=== PATIENT | female | born 1940 | race Caucasian/White ===

== ENCOUNTER 2016-03-15 09:55 | Inpatient (IN) | payer OTHER ==
[2016-03-15] VITALS (13 sets, daily range): BP systolic 94–170; BP diastolic 45–130
[~2016-03-15] VITALS: Ht 147.3 cm; Wt 110.2 kg
[~2016-03-15 09:55] MED LIST: AMLO10TA2 PO; CLIN300C97 PO; FURO-144 PO; METO-302 PO; POTA10CA43 PO; SIMV20TA2 PO
[2016-03-15] MEDS ORDERED: ALBUTEROL FS 2.5 MG/3 ML VIAL.NEB ONE (10:08)
[2016-03-15] MEDS ORDERED: ALBUTEROL FS 2.5 MG/3 ML VIAL.NEB NEB ONE (10:30)
[2016-03-15] MEDS ORDERED: IPRATROPIUM NEB FS 0.5 MG/2.5 ML AMPUL.NEB NEB ONE (10:30)
[2016-03-15] MEDS ORDERED: LOSA1TAB39 PO (10:40)
[2016-03-15 10:49] LABS: BASOPHILS # (AUTO) 0.1 /CMM (0.0-0.2); BASOPHILS % (AUTO) 0.8 % (0.0-2.0); DIFF TOTAL % 100 %; EOSINOPHILS % (AUTO) 0.1 % (0.0-6.0); HEMATOCRIT 37 % (33-45); HEMOGLOBIN 12.3 g/dL (11.5-14.8); LYMPHOCYTES # (AUTO) 0.6 /CMM (0.8-4.8); LYMPHOCYTES % (AUTO) 5.7 % (20.0-44.0); MEAN CORPUSCULAR HEMOGLOBIN 29 PG (26.0-33.0); MEAN CORPUSCULAR HGB CONC 33 g/dl (31.0-36.0); MEAN CORPUSCULAR VOLUME 86 fL (82-100); MONOCYTES # (AUTO) 0.8 /CMM (0.1-1.30); MONOCYTES % (AUTO) 7.3 % (2.0-12.0); NEUTROPHILS # (AUTO) 9.7 /CMM (1.8-8.9); NEUTROPHILS % (AUTO) 86.1 % (43.0-81.0); PLATELET COUNT (AUTO) 305 /CMM (150-450); RED BLOOD CELL COUNT(AUTO) 4.32 MIL/uL (4.0-5.2); WHITE BLOOD COUNT (AUTO) 11.2 K/uL (4.3-11.0)
[2016-03-15 10:51] LABS: ANION GAP 13 (5-14); CALCIUM, SERUM 8.9 mg/dL (8.5-10.1); CARBON DIOXIDE 27 mmol/L (21-32); CHLORIDE 98 mmol/L (98-107); CREATININE 1.2 mg/dL (0.6-1.3); GLUCOSE 142 mg/dL (74-106); POTASSIUM 4.9 mmol/L (3.5-5.1); SODIUM SERUM 133 mmol/L (136-145); UREA NITROGEN, BLOOD 23 mg/dL (7-18)
[2016-03-15 10:58] LABS: TROPONIN I < 0.017 ng/mL (0.00-0.056)
[2016-03-15] MEDS ORDERED: ENALAPRILAT DIHYD. (2.5MG/ML) 1.25 MG/ML VIAL IV ONE ×2 (11:00→11:03)
[2016-03-15] MEDS ORDERED: ASPIRIN 325 MG TABLET PO ONE (11:00)
[2016-03-15] MEDS ORDERED: NITROGLYCERIN PACKET 1 GM PACKET TD ONE (11:00)
[2016-03-15] MEDS ORDERED: FUROSEMIDE 40 MG/4 ML VIAL IV ONE (11:00)
[2016-03-15] MEDS ORDERED: FUROSEMIDE 40 MG/4 ML VIAL ONE (11:03)
[2016-03-15] MEDS ORDERED: NITROGLYCERIN PACKET 1 GM PACKET ONE (11:03)
[2016-03-15] MEDS ORDERED: ASPIRIN 325 MG TABLET ONE (11:03)
[2016-03-15 11:07] LABS: ALANINE AMINOTRANSFERASE 16 U/L (12-78); ALBUMIN 3.5 g/dL (3.4-5.0); ASPARTATE AMINOTRANSFERASE 21 U/L (15-37); BILIRUBIN,DIRECT 0.2 mg/dL (0.0-0.2); BILIRUBIN,TOTAL 0.6 mg/dL (0.2-1.0); INDIRECT BILIRUBIN 0.4 mg/dL (0.0-1.1)
[2016-03-15 11:11] LABS: INR 0.98 (0.87-1.13); PROTHROMBIN TIME 10.3 SECS (9.5-12.7)
[2016-03-15 11:13] LABS: LACTIC ACID 2.2 mmol/L (0.4-2.0)
[2016-03-15 11:33] LABS: *LACTIC ACID REFLEX FLAG YES
[2016-03-15 11:43] LABS: BAND % (MANUAL) 1 % (0.0-5.0); LYMPHOCYTES % (MANUAL) 8 % (16-48)
[2016-03-15 11:44] LABS: PLATELET ESTIMATE ADEQUATE
[2016-03-15] MEDS ORDERED: LEVOFLOXACIN 750 MG /D5W 150ML 750 MG in PREMIX 1 EA IV SCH (13:30)
[2016-03-15] MEDS ORDERED: ACETAMINOPHEN 325 MG TABLET PO PRN (13:30)
[2016-03-15] MEDS ORDERED: ONDANSETRON HCL/PF 4 MG/2 ML VIAL IVP PRN (13:30)
[2016-03-15] MEDS ORDERED: IV SET PRIMARY PUMP SET 1 EA INFUS.SET MC ONE ×2 (13:45→14:53)
[2016-03-15] MEDS: GUAIFENESIN LA 600 MG TABLET.SA PO SCH ×2 (13:50→20:33)
[2016-03-15] MEDS: hydrALAZINE HCL 50 MG TABLET PO SCH ×2 (13:51→16:34)
[2016-03-15] MEDS: ATORVASTATIN 10 MG TABLET PO SCH (13:51)
[2016-03-15] MEDS: IPRATROPIUM NEB FS 0.5 MG/2.5 ML AMPUL.NEB NEB SCH ×2 (14:06→19:31)
[2016-03-15] MEDS: ALBUTEROL FS 2.5 MG/0.5 ML VIAL.NEB NEB SCH ×2 (14:06→19:31)
[2016-03-15 14:25] LABS: PHOSPHORUS 4.5 mg/dL (2.5-4.9)
[2016-03-15 14:27] LABS: ABG BASE EXCESS 0.2 mmol/L; ABG HCO3 24.1 mmol/L; ABG PCO2 36.7 mmHg (35.0-45.0); ABG PH 7.436 (7.350-7.450); ABG PO2 142.8 mmHg (75.0-100.0); ABG TOTAL HEMOGLOBIN 11.6 G/dL (12.0-16.0); ALLEN TEST Pass; AaDO2 100.2 mmHg; O2Hb 97.1 % (94.0-97.0)
[2016-03-15] MEDS: NITROGLYCERIN 30 GM TUBE TP SCH ×2 (14:43→20:38)
[2016-03-15] MEDS: LEVOFLOXACIN 750 MG /D5W 150ML 750 MG in PREMIX 1 EA IV SCH (14:44)
[2016-03-15] MEDS ORDERED: IV NS 0.9% 1,000 ML BAG IV ONE (15:00)
[2016-03-15 15:36] LABS: THYROID STIMULATING HORMONE 2.97 uIU/mL (0.358-3.74)
[2016-03-15 16:20] LABS: ABG HCO3 24.7 mmol/L; ABG PCO2 36.1 mmHg (35.0-45.0); ABG PH 7.453 (7.350-7.450); ABG PO2 74.5 mmHg (75.0-100.0); ABG TOTAL HEMOGLOBIN 11.2 G/dL (12.0-16.0); ALLEN TEST Pass; AaDO2 111.4 mmHg; O2Hb 92.7 % (94.0-97.0)
[2016-03-15] MEDS: RIVAROXABAN 15 MG TABLET PO SCH (16:35)
[2016-03-15] MEDS: methylPREDNISolone SOD SUCC 125 MG/2ML VIAL IV SCH ×2 (17:08→23:30)
[2016-03-16] VITALS (24 sets, daily range): BP systolic 104–144; BP diastolic 42–99
[2016-03-16 01:17] LABS: KETONES,URINE NEGATIVE (NEGATIVE); LEUKOCYTE ESTERASE ,URINE 1+ (NEGATIVE)
[2016-03-16 01:23] LABS: ADD UA MICROSCOPIC YES
[2016-03-16] MEDS: ALBUTEROL FS 2.5 MG/0.5 ML VIAL.NEB NEB SCH ×4 (01:37→19:40)
[2016-03-16] MEDS: IPRATROPIUM NEB FS 0.5 MG/2.5 ML AMPUL.NEB NEB SCH ×4 (01:38→19:40)
[2016-03-16 01:42] LABS: ADD URINE CULTURE YES; RBC,URINE TOO NUMEROUS TO COUN /HPF (0-2)
[2016-03-16] MEDS: methylPREDNISolone SOD SUCC 125 MG/2ML VIAL IV SCH ×4 (05:14→23:41)
[2016-03-16 05:24] LABS: DIFF TOTAL % 100 %; HEMATOCRIT 31 % (33-45); HEMOGLOBIN 10.6 g/dL (11.5-14.8); LYMPHOCYTES # (AUTO) 0.4 /CMM (0.8-4.8); LYMPHOCYTES % (AUTO) 5.7 % (20.0-44.0); MEAN CORPUSCULAR HEMOGLOBIN 29 PG (26.0-33.0); MEAN CORPUSCULAR HGB CONC 34 g/dl (31.0-36.0); MEAN CORPUSCULAR VOLUME 87 fL (82-100); MONOCYTES # (AUTO) 0.1 /CMM (0.1-1.30); MONOCYTES % (AUTO) 0.7 % (2.0-12.0); NEUTROPHILS # (AUTO) 6.8 /CMM (1.8-8.9); NEUTROPHILS % (AUTO) 93.6 % (43.0-81.0); PLATELET COUNT (AUTO) 263 /CMM (150-450); RED BLOOD CELL COUNT(AUTO) 3.63 MIL/uL (4.0-5.2); WHITE BLOOD COUNT (AUTO) 7.3 K/uL (4.3-11.0)
[2016-03-16 06:00] LABS: BILIRUBIN,TOTAL 0.4 mg/dL (0.2-1.0); CALCIUM, SERUM 8.2 mg/dL (8.5-10.1); CREATININE 1.5 mg/dL (0.6-1.3); POTASSIUM 4.7 mmol/L (3.5-5.1); TOTAL PROTEIN, SERUM 7.1 g/dL (6.4-8.2)
[2016-03-16] MEDS ORDERED: BUMETANIDE INJ 8 MG in IV NS 0.9% 48 ML IV ONE (09:00)
[2016-03-16] MEDS: GUAIFENESIN LA 600 MG TABLET.SA PO SCH ×2 (09:10→21:02)
[2016-03-16] MEDS: ATORVASTATIN 10 MG TABLET PO SCH (09:11)
[2016-03-16] MEDS: PANTOPRAZOLE 40 MG VIAL IV SCH (09:11)
[2016-03-16] MEDS: hydrALAZINE HCL 50 MG TABLET PO SCH ×3 (09:11→16:56)
[2016-03-16] MEDS: NITROGLYCERIN 30 GM TUBE TP SCH ×2 (09:15→21:02)
[2016-03-16] MEDS ORDERED: IV NS 0.9% 250 ML IV ONE (16:46)
[2016-03-16] MEDS ORDERED: SECONDARY IV SET 1 EA INFUS.SET MC ONE (16:46)
[2016-03-16] MEDS: SOD FERRIC GLUC 125 MG in IV NS 0.9% 100 ML IV SCH (16:50)
[2016-03-16] MEDS ORDERED: IV SET PRIMARY PUMP SET 1 EA INFUS.SET MC ONE (16:50)
[2016-03-16] MEDS: RIVAROXABAN 15 MG TABLET PO SCH (16:51)
[2016-03-17] VITALS (15 sets, daily range): BP systolic 106–149; BP diastolic 58–96
[2016-03-17] MEDS: ALBUTEROL FS 2.5 MG/0.5 ML VIAL.NEB NEB SCH ×4 (01:35→20:08)
[2016-03-17] MEDS: IPRATROPIUM NEB FS 0.5 MG/2.5 ML AMPUL.NEB NEB SCH ×4 (01:35→20:08)
[2016-03-17 04:46] LABS: BASOPHILS % (AUTO) 0.1 % (0.0-2.0); DIFF TOTAL % 100 %; HEMATOCRIT 32 % (33-45); HEMOGLOBIN 10.8 g/dL (11.5-14.8); LYMPHOCYTES # (AUTO) 0.4 /CMM (0.8-4.8); LYMPHOCYTES % (AUTO) 4.8 % (20.0-44.0); MEAN CORPUSCULAR HEMOGLOBIN 29 PG (26.0-33.0); MEAN CORPUSCULAR HGB CONC 34 g/dl (31.0-36.0); MEAN CORPUSCULAR VOLUME 86 fL (82-100); MONOCYTES # (AUTO) 0.2 /CMM (0.1-1.30); MONOCYTES % (AUTO) 2.1 % (2.0-12.0); NEUTROPHILS # (AUTO) 8.3 /CMM (1.8-8.9); PLATELET COUNT (AUTO) 292 /CMM (150-450); RED BLOOD CELL COUNT(AUTO) 3.68 MIL/uL (4.0-5.2)
[2016-03-17 04:57] LABS: TROPONIN I < 0.017 ng/mL (0.00-0.056)
[2016-03-17 05:02] LABS: ALANINE AMINOTRANSFERASE 19 U/L (12-78); ALBUMIN 3.1 g/dL (3.4-5.0); ANION GAP 16 (5-14); ASPARTATE AMINOTRANSFERASE 14 U/L (15-37); BILIRUBIN,TOTAL 0.3 mg/dL (0.2-1.0); CALCIUM, SERUM 8.2 mg/dL (8.5-10.1); CARBON DIOXIDE 25 mmol/L (21-32); CHLORIDE 102 mmol/L (98-107); CREATININE 1.8 mg/dL (0.6-1.3); GLUCOSE 184 mg/dL (74-106); PHOSPHORUS 5.1 mg/dL (2.5-4.9); POTASSIUM 3.5 mmol/L (3.5-5.1); SODIUM SERUM 139 mmol/L (136-145); TOTAL PROTEIN, SERUM 7.2 g/dL (6.4-8.2); UREA NITROGEN, BLOOD 48 mg/dL (7-18)
[2016-03-17] MEDS: methylPREDNISolone SOD SUCC 125 MG/2ML VIAL IV SCH ×3 (06:21→17:06)
[2016-03-17] MEDS: POTASSIUM CHLORIDE 20 MEQ TAB.PRT.SR PO SCH ×3 (06:25→10:06)
[2016-03-17] MEDS: FUROSEMIDE 100 MG/10 ML VIAL IV SCH ×3 (06:26→14:08)
[2016-03-17] MEDS ORDERED: GUAIFENESIN/CODEINE 10 ML UDC PO PRN (08:30)
[2016-03-17] MEDS ORDERED: Z GUARD REMEDY 2 OZ OINT TP PRN (09:30)
[2016-03-17] MEDS: CHOLECALCIFEROL 1,000 UNIT TABLET (VIT D3) PO SCH (09:53)
[2016-03-17] MEDS: hydrALAZINE HCL 50 MG TABLET PO SCH ×3 (09:54→16:58)
[2016-03-17] MEDS: PANTOPRAZOLE 40 MG VIAL IV SCH (09:55)
[2016-03-17] MEDS: GUAIFENESIN LA 600 MG TABLET.SA PO SCH ×2 (09:55→20:45)
[2016-03-17] MEDS: ATORVASTATIN 10 MG TABLET PO SCH (09:55)
[2016-03-17] MEDS: NITROGLYCERIN 30 GM TUBE TP SCH ×2 (09:55→20:50)
[2016-03-17] MEDS: SOD FERRIC GLUC 125 MG in IV NS 0.9% 100 ML IV SCH (13:40)
[2016-03-17] MEDS: LEVOFLOXACIN 750 MG /D5W 150ML 750 MG in PREMIX 1 EA IV SCH (14:09)
[2016-03-17] MEDS: RIVAROXABAN 15 MG TABLET PO SCH (16:58)
[2016-03-18] VITALS (10 sets, daily range): BP systolic 126–150; BP diastolic 64–96
[2016-03-18] MEDS: methylPREDNISolone SOD SUCC 125 MG/2ML VIAL IV SCH ×2 (00:22→05:31)
[2016-03-18] MEDS: IPRATROPIUM NEB FS 0.5 MG/2.5 ML AMPUL.NEB NEB SCH ×3 (01:03→13:15)
[2016-03-18] MEDS: ALBUTEROL FS 2.5 MG/0.5 ML VIAL.NEB NEB SCH ×3 (01:03→13:15)
[2016-03-18 07:27] LABS: DIFF TOTAL % 100 %; HEMATOCRIT 34 % (33-45); HEMOGLOBIN 11.4 g/dL (11.5-14.8); LYMPHOCYTES # (AUTO) 0.4 /CMM (0.8-4.8); MEAN CORPUSCULAR HEMOGLOBIN 29 PG (26.0-33.0); MEAN CORPUSCULAR HGB CONC 33 g/dl (31.0-36.0); MEAN CORPUSCULAR VOLUME 87 fL (82-100); MONOCYTES # (AUTO) 0.3 /CMM (0.1-1.30); MONOCYTES % (AUTO) 3.5 % (2.0-12.0); NEUTROPHILS # (AUTO) 7.2 /CMM (1.8-8.9); NEUTROPHILS % (AUTO) 91.5 % (43.0-81.0); PLATELET COUNT (AUTO) 334 /CMM (150-450); RED BLOOD CELL COUNT(AUTO) 3.96 MIL/uL (4.0-5.2); WHITE BLOOD COUNT (AUTO) 7.8 K/uL (4.3-11.0)
[2016-03-18 07:46] LABS: ALBUMIN 3.4 g/dL (3.4-5.0); BILIRUBIN,TOTAL 0.4 mg/dL (0.2-1.0); CALCIUM, SERUM 8.1 mg/dL (8.5-10.1); CREATININE 1.9 mg/dL (0.6-1.3); PHOSPHORUS 5.4 mg/dL (2.5-4.9); POTASSIUM 3.5 mmol/L (3.5-5.1); TOTAL PROTEIN, SERUM 7.6 g/dL (6.4-8.2)
[2016-03-18] MEDS: PANTOPRAZOLE 40 MG VIAL IV SCH (08:49)
[2016-03-18] MEDS: hydrALAZINE HCL 50 MG TABLET PO SCH ×3 (08:50→17:00)
[2016-03-18] MEDS: ATORVASTATIN 10 MG TABLET PO SCH (08:50)
[2016-03-18] MEDS: CHOLECALCIFEROL 1,000 UNIT TABLET (VIT D3) PO SCH (08:50)
[2016-03-18] MEDS: GUAIFENESIN LA 600 MG TABLET.SA PO SCH ×2 (08:50→22:00)
[2016-03-18] MEDS: FUROSEMIDE 40 MG TABLET PO SCH (09:35)
[2016-03-18] MEDS: POTASSIUM CHLORIDE 20 MEQ TAB.PRT.SR PO SCH (09:35)
[2016-03-18] MEDS: NITROGLYCERIN 30 GM TUBE TP SCH ×2 (09:36→22:00)
[2016-03-18] MEDS: SOD FERRIC GLUC 125 MG in IV NS 0.9% 100 ML IV SCH (14:00)
[2016-03-18] MEDS: RIVAROXABAN 15 MG TABLET PO SCH (17:00)
[2016-03-19 08:00] VITALS: BP_SYST 124; BP_DIAS 84; BP_DIAS 89
[2016-03-19] MEDS: FUROSEMIDE 40 MG TABLET PO SCH (08:57)
[2016-03-19] MEDS: hydrALAZINE HCL 50 MG TABLET PO SCH (08:57)
[2016-03-19 09:00] VITALS: BP 124/89
[2016-03-19] MEDS: GUAIFENESIN LA 600 MG TABLET.SA PO SCH (09:00)
[2016-03-19] MEDS: NITROGLYCERIN 30 GM TUBE TP SCH (09:00)
[2016-03-19] MEDS ORDERED: methylPREDNISolone SOD SUCC 125 MG/2ML VIAL IV SCH (09:00)
[2016-03-19] MEDS: CHOLECALCIFEROL 1,000 UNIT TABLET (VIT D3) PO SCH (09:00)
[2016-03-19] MEDS: PANTOPRAZOLE 40 MG VIAL IV SCH (09:00)
[2016-03-19] MEDS: POTASSIUM CHLORIDE 20 MEQ TAB.PRT.SR PO SCH (09:00)
[2016-03-19] MEDS: ATORVASTATIN 10 MG TABLET PO SCH (09:00)
== END 2016-03-19 12:40 | disposition home or self-care (01) | DRG 871 ==
LOC: ER 09:56 → ICU 12:16 → TELE 03-17 13:38 → MED 03-19 04:26
PROVIDERS: ADMIT Internal Medicine; ATTEND Internal Medicine
PROC: 5A09357 Assistance with Respiratory Ventilation, Less than 24 Consecutive Hours, Continuous Positive Airway Pressure (ICD-10-PCS; principal; 2016-03-15)
DX: A41.9 Sepsis, unspecified organism (principal); J69.0 Pneumonitis due to inhalation of food and vomit; J96.01 Acute respiratory failure with hypoxia; I50.33 Acute on chronic diastolic (congestive) heart failure; I21.4 Non-ST elevation (NSTEMI) myocardial infarction; N17.0 Acute kidney failure with tubular necrosis; J15.9 Unspecified bacterial pneumonia; J44.1 Chronic obstructive pulmonary disease with (acute) exacerbation; E44.0 Moderate protein-calorie malnutrition; D68.59 Other primary thrombophilia; E87.2 Acidosis; I13.0 Hypertensive heart and chronic kidney disease with heart failure and stage 1 through stage 4 chronic kidney disease, or unspecified chronic kidney disease; Z68.43 Body mass index [BMI] 50.0-59.9, adult; E55.9 Vitamin D deficiency, unspecified; E66.01 Morbid (severe) obesity due to excess calories; E78.5 Hyperlipidemia, unspecified; E88.81 Metabolic syndrome and other insulin resistance; N18.2 Chronic kidney disease, stage 2 (mild); I87.8 Other specified disorders of veins; Z87.891 Personal history of nicotine dependence; I27.2 Other secondary pulmonary hypertension; I48.91 Unspecified atrial fibrillation; E86.9 Volume depletion, unspecified; G47.33 Obstructive sleep apnea (adult) (pediatric); D63.8 Anemia in other chronic diseases classified elsewhere; D50.9 Iron deficiency anemia, unspecified; J40 Bronchitis, not specified as acute or chronic; R65.20 Severe sepsis without septic shock
CPT/HCPCS: 36415; 36600; 71010-TC; 80048-TC; 80053-TC; 80061-TC; 80076-TC; 81000-TC; 82306; 82728-TC; 83540-TC; 83605-TC; 83735-TC; 83880; 84100-TC; 84439-TC; 84443-TC; 84484-TC; 85025-TC; 85730-TC; 87040-TC; 87081-TC; 87086-TC; 87400; 93307-TC; 94799-TC; A4216; A4606; C9113; J1940; J1956; J2916; J2930; J3490; J7030; J7050; Z7610

== ENCOUNTER 2016-06-14 20:57 | Inpatient (IN) | payer OTHER ==
[~2016-06-14] VITALS: Ht 157.5 cm; Wt 103.9 kg
[~2016-06-14 20:57] MED LIST changes: -AMLO10TA2 PO; -CLIN300C97 PO; -FURO-144 PO; +LOSA1TAB39 PO; -METO-302 PO; -POTA10CA43 PO; -SIMV20TA2 PO
--- NOTE | 2016-06-14 21:26 | NUR ---
TO BED 4 AMBULATORY C/O COUGH, CONGESTION, AND SOB X4 DAYS. PT AAOX4, NOTED BILATERAL LOWER EXTREMITY SWELLING. PLACE PT ON CARDIAC MONITORING, CONTINUOUS POX. NOTED O2 SAT 87% ON RA. PENDING ER MD ALDRICH.
--- NOTE | 2016-06-14 21:30 | NUR ---
URINE SAMPLE COLLECTED AND SENT TO LAB.
--- NOTE | 2016-06-14 21:30 | NUR ---
MCKAYLA HERNANDEZ 18G TO R AC, BLOOD DRAWN AND SENT TO LAB.
[2016-06-14 21:45] LABS: BASOPHILS % (AUTO) 0.3 % (0.0-2.0); EOSINOPHILS % (AUTO) 0.3 % (0.0-6.0); HEMATOCRIT 37 % (33-45); HEMOGLOBIN 12.1 g/dL (11.5-14.8); LYMPHOCYTES # (AUTO) 0.6 /CMM (0.8-4.8); LYMPHOCYTES % (AUTO) 7.9 % (20.0-44.0); MEAN CORPUSCULAR HEMOGLOBIN 28 PG (26.0-33.0); MEAN CORPUSCULAR HGB CONC 33 g/dl (31.0-36.0); MEAN CORPUSCULAR VOLUME 86 fL (82-100); MONOCYTES # (AUTO) 0.3 /CMM (0.1-1.30); MONOCYTES % (AUTO) 4.5 % (2.0-12.0); NEUTROPHILS # (AUTO) 6.6 /CMM (1.8-8.9); PLATELET COUNT (AUTO) 241 /CMM (150-450); RDW COEFFICIENT OF VARIATION 15.1 (11.5-15.0); RED BLOOD CELL COUNT(AUTO) 4.28 MIL/uL (4.0-5.2); WHITE BLOOD COUNT (AUTO) 7.5 K/uL (4.3-11.0)
[2016-06-14 21:55] LABS: CALCIUM, SERUM 8.8 mg/dL (8.5-10.1); CARBON DIOXIDE 28 mmol/L (21-32); CHLORIDE 101 mmol/L (98-107); CREATININE 1.2 mg/dL (0.6-1.3); GLUCOSE 122 mg/dL (74-106); POTASSIUM 4.2 mmol/L (3.5-5.1); SODIUM SERUM 136 mmol/L (136-145); UREA NITROGEN, BLOOD 23 mg/dL (7-18)
[2016-06-14 21:58] LABS: PROTHROMBIN TIME 10.4 SECS (9.5-12.7)
[2016-06-14 22:06] LABS: ALANINE AMINOTRANSFERASE 21 U/L (12-78); ALBUMIN 3.6 g/dL (3.4-5.0); ALKALINE PHOSPHATASE 117 U/L (46-116); ASPARTATE AMINOTRANSFERASE 22 U/L (15-37); B-TYPE NATRIURETIC PEPTIDE 2555 PG/ML (0-125); BILIRUBIN,DIRECT 0.2 mg/dL (0.0-0.2); BILIRUBIN,TOTAL 0.5 mg/dL (0.2-1.0); TOTAL PROTEIN, SERUM 7.4 g/dL (6.4-8.2)
[2016-06-14 22:07] LABS: APPEARANCE,URINE CLEAR (CLEAR); BILIRUBIN,URINE NEGATIVE (NEGATIVE); BLOOD, URINE 1+ Ery/uL (NEGATIVE); COLOR,URINE YELLOW (YELLOW); KETONES,URINE TRACE (NEGATIVE); LEUKOCYTE ESTERASE ,URINE 2+ (NEGATIVE); NITRITE, URINE NEGATIVE (NEGATIVE); PROTEIN,URINE 1+ mg/dl (NEGATIVE); UGLUCOSE NEGATIVE (NEGATIVE); UROBILINOGEN,URINE 0.2 EU/dL (0.2)
[2016-06-14 22:07] LABS: TROPONIN I < 0.017 ng/mL (0.00-0.056)
[2016-06-14 22:13] LABS: ADD URINE CULTURE YES; BACTERIA,URINE Few /HPF (None Seen); SQUAMOUS EPITHELIAL CELL,UR Rare /HPF (None Seen)
[2016-06-14] MEDS ORDERED: FUROSEMIDE 40 MG/4 ML VIAL IV ONE (22:30)
[2016-06-14] MEDS ORDERED: CEFTRIAXONE 1GM BAG (ER ONLY) 1 GM/50 ML PIGGYBACK IV ONE (22:30)
[2016-06-14] MEDS ORDERED: ALBUTEROL FS 2.5 MG/0.5 ML VIAL.NEB NEB ONE (22:30)
--- NOTE | 2016-06-14 22:39 | NUR ---
RT PAGED FOR APRYL QUEZADA.
[2016-06-14] MEDS ORDERED: ALBUTEROL FS 2.5 MG/3 ML VIAL.NEB ONE (22:40)
[2016-06-14] MEDS ORDERED: FUROSEMIDE 40 MG/4 ML VIAL ONE (22:41)
[2016-06-14] MEDS ORDERED: IV SET PRIMARY 1 EA INFUS.SET MC ONE (22:42)
[2016-06-14] MEDS ORDERED: CEFTRIAXONE 1GM BAG (ER ONLY) 50 ML IV ONE (22:42)
[2016-06-14] MEDS ORDERED: ALBUTEROL FS 2.5 MG/3 ML VIAL.NEB NEB ONE (23:00)
--- NOTE | 2016-06-14 23:24 | NUR ---
REPORT CALLED TO [facility] HELPERZENIA CHRISTOPHER. WILL TRANSPORT PT VIA ACLS PROTOCOL.
--- NOTE | 2016-06-14 23:24 | NUR ---
PT WAS SEEN AND EVALUATED BY BRYAN SILVERMAN.
--- NOTE | 2016-06-14 23:40 | NUR ---
RN OPEN NOTES RECEIVED PATIENT FROM ER VIA GURNEY. AWAKE IN BED. A/O X3. NO SIGNS OF DISTRESS OR DISCOMFORT. BREATHING EVEN AND UNLABORED. ON 4LPM VIA SIMPLE MASK. IV ACCESS IN RAC, PATENT AND INTACT. NO SIGNS OF REDNESS OR INFILTRATION. ORIENTED PATIENT TO UNIT AND ROOM. BED IN LOW LOCKED POSITION WITH SIDE RAIL X2. CALL LIGHT WITHIN REACH. WILL CONTINUE TO MONITOR.
[2016-06-15] VITALS: BP 144/68
[2016-06-15] MEDS ORDERED: ACETAMINOPHEN 325 MG TABLET PO PRN (00:30)
[2016-06-15] MEDS ORDERED: ONDANSETRON HCL/PF 4 MG/2 ML VIAL IVP PRN (00:30)
[2016-06-15] MEDS ORDERED: Z GUARD REMEDY 2 OZ OINT TP PRN (00:30)
[2016-06-15] MEDS ORDERED: MAG HYDROX/AL HYDROX/SIMETH 30 ML UDC PO PRN (00:30)
[2016-06-15] MEDS ORDERED: MAGNESIUM HYDROXIDE 30 ML UDC PO PRN (00:30)
[2016-06-15] MEDS ORDERED: TEMAZEPAM 15 MG CAPSULE PO PRN (00:30)
[2016-06-15 04:00] VITALS: BP 132/67
[2016-06-15 07:02] LABS: BILIRUBIN,DIRECT 0.1 mg/dL (0.0-0.2); BILIRUBIN,TOTAL 0.4 mg/dL (0.2-1.0); MAGNESIUM 1.7 mg/dL (1.8-2.4); PHOSPHORUS 4.7 mg/dL (2.5-4.9); TOTAL PROTEIN, SERUM 6.3 g/dL (6.4-8.2)
[2016-06-15 08:00] VITALS: BP 127/65
--- NOTE | 2016-06-15 08:00 | NUR ---
RN CLOSING NOTES PATIENT RESTING IN BED. A/O X3. NO SIGNS OF DISTRESS OR DISCOMFORT. BREATHING EVEN AND UNLABORED. ON 4LPM VIA SIMPLE MASK. IV ACCESS IN RAC, PATENT AND INTACT. NO SIGNS OF REDNESS OR INFILTRATION. ALL NEEDS MET. NO SIGNIFICANT CHANGES THROUGH THEN NIGHT. BED IN LOW LOCKED POSITION WITH SIDE RAIL X2. CALL LIGHT WITHIN REACH. ENDORSED TO AM SHIFT FOR SARI.
--- NOTE | 2016-06-15 08:00 | NUR ---
RN OPENING NOTES PATIENT SLEEPING IN BED ON 4L FACE MASK. FACE MASK WAS SWITCHED TO NASAL CANNULA AT 4L. PATIENT TOLERATING NASAL CANNULA WELL. PATIENT IV ON RIGHT AC 18 G. IV IS INTACT PATENT. NO REDNESS OR PAIN NOTED. BED IN LOW LOCKED POSITION. CALL LIGHT WITHIN REACH. WILL CONTINUE TO MONITOR.
[2016-06-15] MEDS: PANTOPRAZOLE 40 MG TABLET.DR PO SCH (08:42)
[2016-06-15] MEDS ORDERED: FUROSEMIDE 40 MG TABLET PO SCH (09:00)
[2016-06-15] MEDS ORDERED: ASPI81TA2 PO (10:01)
[2016-06-15] MEDS ORDERED: ALBU18HF2 IH (10:01)
[2016-06-15] MEDS ORDERED: AMLO10TA2 PO (10:10)
[2016-06-15] MEDS ORDERED: IV NS 0.9% 250 ML IV ONE (11:03)
[2016-06-15] MEDS ORDERED: IV SET PRIMARY PUMP SET 1 EA INFUS.SET MC ONE (11:03)
[2016-06-15] MEDS ORDERED: SECONDARY IV SET 1 EA INFUS.SET MC ONE (11:04)
[2016-06-15] MEDS: Magnesium 1GM/D5W 100ML PREMIX 100 ML IV SCH ×2 (11:10→13:04)
--- NOTE | 2016-06-15 14:00 | NUR ---
DIVORCE ATTORNEY NOTES PATIENT SEEN AND EVALUATED BY DR. GREGORY PASTE MIXER ORDERS NOTED AND CARRIED OUT.
[2016-06-15] MEDS: FUROSEMIDE 40 MG/4 ML VIAL IV SCH (14:45)
[2016-06-15] MEDS: AMLODIPINE BESYLATE 5 MG TABLET PO SCH (14:53)
[2016-06-15 16:00] VITALS: BP 126/61
[2016-06-15] MEDS: RIVAROXABAN 15 MG TABLET PO SCH (17:42)
--- NOTE | 2016-06-15 18:46 | NUR ---
MS RN NOTES PATIENT IN BED RESTING NO SOB OR ACUTE DISTRESS NOTED. PATIENT COMPLAINING OF DRY COUGH DR. DUONG MADE AWARE ORDERS RECEIVED NOTED AND CARRIED OUT. PATIENTS IV ON LEFT HAND INTACT PATENT. ON 4 LITTERS OF OXYGEN VIA NASAL CANULA. ALL DUE MEDICATIONS GIVEN. ALL NEEDS MET. WILL ENDORSE TO PM SHIFT SARI.
--- NOTE | 2016-06-15 19:45 | NUR ---
RN MS - INITIAL NOTES PATIENT IN BED. DENIES ANY PAIN. PATIENT ON 4LNC WITH 95% SATURATION. BED IN LOW POSITION AND LOCKED. SIDERAILS X2 UP. CALL LIGHT IS WITHIN REACH. WILL CONTINUE TO MONITOR PATIENT.
[2016-06-15 20:00] VITALS: BP 154/75
[2016-06-15] MEDS: BENZONATATE 100 MG CAPSULE PO PRN (20:04)
[2016-06-15] MEDS: CEFTRIAXONE 1 G in IV D5W 50 ML IV SCH (21:44)
[2016-06-16] MEDS: BENZONATATE 100 MG CAPSULE PO PRN (03:56)
[2016-06-16] MEDS: ALBUTEROL FS 2.5 MG/0.5 ML VIAL.NEB NEB PRN ×2 (04:10→17:17)
[2016-06-16] MEDS: IPRATROPIUM NEB FS 0.5 MG/2.5 ML AMPUL.NEB NEB PRN ×2 (04:10→17:17)
[2016-06-16 06:54] LABS: BASOPHILS % (AUTO) 0.2 % (0.0-2.0); EOSINOPHILS % (AUTO) 0.2 % (0.0-6.0); HEMATOCRIT 34 % (33-45); HEMOGLOBIN 11.3 g/dL (11.5-14.8); LYMPHOCYTES # (AUTO) 0.4 /CMM (0.8-4.8); LYMPHOCYTES % (AUTO) 8.5 % (20.0-44.0); MEAN CORPUSCULAR HEMOGLOBIN 28 PG (26.0-33.0); MEAN CORPUSCULAR HGB CONC 33 g/dl (31.0-36.0); MEAN CORPUSCULAR VOLUME 86 fL (82-100); MONOCYTES # (AUTO) 0.4 /CMM (0.1-1.30); MONOCYTES % (AUTO) 8.3 % (2.0-12.0); NEUTROPHILS # (AUTO) 4.3 /CMM (1.8-8.9); NEUTROPHILS % (AUTO) 82.8 % (43.0-81.0); PLATELET COUNT (AUTO) 243 /CMM (150-450); RDW COEFFICIENT OF VARIATION 15.6 (11.5-15.0); RED BLOOD CELL COUNT(AUTO) 3.99 MIL/uL (4.0-5.2); WHITE BLOOD COUNT (AUTO) 5.2 K/uL (4.3-11.0)
--- NOTE | 2016-06-16 07:16 | NUR ---
RN OPENING NOTES PATIENT RECEIVED SITTING ON CHAIR AT BEDSIDE IN NO ACUTE SIGNS OF DISTRESS. ALERT AND ORIENTED X 4, NO COMPLAINTS OF PAIN OR DISCOMFORTS VOICED AT THIS TIME. ON 02 VIA N/C AT 2LPM, NO SIGNS OF SOB OBSERVED. IV ACCESS ON LEFT HAND INTACT AND PATENT. FALL PRECAUTIONS MAINTAINED. WILL CONTINUE TO MONITOR ACCORDINGLY.
[2016-06-16 07:25] LABS: CALCIUM, SERUM 8.1 mg/dL (8.5-10.1); CREATININE 1.2 mg/dL (0.6-1.3); MAGNESIUM 2.1 mg/dL (1.8-2.4); POTASSIUM 3.3 mmol/L (3.5-5.1)
[2016-06-16 08:00] VITALS: BP 124/70
[2016-06-16] MEDS: PANTOPRAZOLE 40 MG TABLET.DR PO SCH (08:29)
[2016-06-16] MEDS: FUROSEMIDE 40 MG/4 ML VIAL IV SCH (08:30)
[2016-06-16] MEDS: AMLODIPINE BESYLATE 5 MG TABLET PO SCH (08:30)
[2016-06-16] MEDS ORDERED: FUROSEMIDE 40 MG/4 ML VIAL IV SCH (09:00)
--- NOTE | 2016-06-16 09:45 | NUR ---
RN NOTES PATIENT NOTED WITH LOW K LEVEL OF 3.3, MD MADE AWARE WITH ORDER TO GIVE K-DUR 20MEQ X 1 DOSE. PATIENT NOTED ALSO COUGHING ON AND OFF AND MD ORDERED GUAIFENESIN/CODEINE 10ML Q4HRS PRN. WILL CONTINUE TO MONITOR.
[2016-06-16] MEDS ORDERED: POTASSIUM CHLORIDE 20 MEQ TAB.PRT.SR PO ONE (10:00)
[2016-06-16] MEDS: GUAIFENESIN/CODEINE 10 ML UDC PO PRN ×3 (10:02→21:38)
[2016-06-16 15:51] VITALS: BP 113/64
[2016-06-16 16:00] VITALS: BP 113/64
--- NOTE | 2016-06-16 16:38 | NUR ---
RN NOTES FAMILY VISITED PATIENT AND REQUESTED TO HAVE PATIENT TO BE EVALUATED BY PULMOLOGIST. DR DUONG WAS INFORMED AND SAID THAT HE WILL COORDINATE WITH DR ANN. WILL CONTINUE TO MONITOR.
[2016-06-16] MEDS: RIVAROXABAN 15 MG TABLET PO SCH (17:14)
--- NOTE | 2016-06-16 18:58 | NUR ---
RN CLOSING NOTES PATIENT IN BED AWAKE AND WATCHING TV. ALERT AND ORIENTED X 4. VERBALLY RESPONSIVE, DENIES ANY PAIN OR DISCOMFORTS AT THIS TIME. HEAD OF BED ELEVATED. ALL NEEDS AND CARE WELL PROVIDED. DUE MEDS GIVEN ORDERED. CONTINUES ON SUPPLEMENTAL 02 VIA N/C AT 2LPM, TOLERATED WITH NO SIGNS OF SOB THIS TOUR. IV ACCESS ON LEFT HAND G# 22 INTACT AND PATENT. BED ON LOW POSITION, LOCKED WITH SIDE RAILS UP FOR SAFETY. WILL ENDORSED TO HALF SECTION IRONER FOR CONTINUITY OF CARE.
--- NOTE | 2016-06-16 19:32 | NUR ---
RN OPEN NOTES RECEIVED PATIENT AWAKE IN BED WITH SON AT BEDSIDE. A/O X3. NO SIGNS OF DISTRESS OR DISCOMFORT. BREATHING EVEN AND UNLABORED. ON 2LPM VIA NC. IV ACCESS IN L HAND, PATENT AND INTACT. NO SIGNS OF REDNESS OR INFILTRATION. BED IN LOW LOCKED POSITION WITH SIDE RAIL X2. CALL LIGHT WITHIN REACH. WILL CONTINUE TO MONITOR.
[2016-06-16 20:00] VITALS: BP 124/55
--- NOTE | 2016-06-16 20:44 | NUR ---
RN NOTES ADMINISTERED TYLENOL 650MG PRN ORDERED FOR ELEV. TEMP OF 100.3. WILL CONTINUE TO MONITOR.
[2016-06-16 20:52] VITALS: BP 124/55
[2016-06-16] MEDS: CEFTRIAXONE 1 G in IV D5W 50 ML IV SCH (21:15)
--- NOTE | 2016-06-16 21:42 | NUR ---
RN NOTES ADMINISTERED ROBITUSSIN AC 10ML PRN FOR COUGH. WILL CONTINUE TO MONITOR.
--- NOTE | 2016-06-17 07:01 | NUR ---
RN CLOSING NOTES PATIENT AWAKE IN BED. A/O X4. NO SIGNS OF DISTRESS OR DISCOMFORT. BREATHING EVEN AND UNLABORED. ON 2LPM VIA NC. IV ACCESS IN L HAND, PATENT AND INTACT. NO SIGNS OF REDNESS OR INFILTRATION. NO SIGNIFICANT CHANGES THROUGH THE NIGHT. ALL NEEDS MET. BED IN LOW LOCKED POSITION WITH SIDE RAIL X2. CALL LIGHT WITHIN REACH. WILL ENDORSE TO AM SHIFT FOR SARI.
--- NOTE | 2016-06-17 07:16 | NUR ---
RN OPENING NOTES PATIENT RECEIVED IN BED AWAKE, ALERT AND ORIENTED X 4 IN NO ACUTE SIGNS OF DISTRESS. VERBALLY RESPONSIVE, DENIES ANY PAIN OR DISCOMFORTS AT THIS TIME. ON 02 VIA N/C AT 2LPM, NO SIGNS OF SOB OBSERVED. IV ACCESS ON LEFT HAND INTACT AND PATENT. CALL LIGHT WITHIN EASY REACH OF PATIENT. BED LOW AND LOCKED FOR SAFETY. WILL CONTINUE TO MONITOR ACCORDINGLY.
[2016-06-17 07:29] LABS: BASOPHILS % (AUTO) 0.6 % (0.0-2.0); EOSINOPHILS # (AUTO) 0.1 /CMM (0.0-0.7); EOSINOPHILS % (AUTO) 2.3 % (0.0-6.0); HEMATOCRIT 33 % (33-45); HEMOGLOBIN 10.9 g/dL (11.5-14.8); LYMPHOCYTES # (AUTO) 0.6 /CMM (0.8-4.8); LYMPHOCYTES % (AUTO) 21.1 % (20.0-44.0); MEAN CORPUSCULAR HEMOGLOBIN 28 PG (26.0-33.0); MEAN CORPUSCULAR HGB CONC 33 g/dl (31.0-36.0); MEAN CORPUSCULAR VOLUME 86 fL (82-100); MONOCYTES # (AUTO) 0.4 /CMM (0.1-1.30); MONOCYTES % (AUTO) 12.7 % (2.0-12.0); NEUTROPHILS # (AUTO) 1.9 /CMM (1.8-8.9); NEUTROPHILS % (AUTO) 63.3 % (43.0-81.0); PLATELET COUNT (AUTO) 237 /CMM (150-450); RDW COEFFICIENT OF VARIATION 15.5 (11.5-15.0); RED BLOOD CELL COUNT(AUTO) 3.84 MIL/uL (4.0-5.2)
[2016-06-17 07:58] LABS: CALCIUM, SERUM 7.9 mg/dL (8.5-10.1); CREATININE 1.2 mg/dL (0.6-1.3); POTASSIUM 4.2 mmol/L (3.5-5.1)
[2016-06-17 08:00] VITALS: BP 134/69
[2016-06-17] MEDS: PANTOPRAZOLE 40 MG TABLET.DR PO SCH (08:34)
[2016-06-17] MEDS: FUROSEMIDE 40 MG TABLET PO SCH (08:34)
[2016-06-17] MEDS: AMLODIPINE BESYLATE 5 MG TABLET PO SCH (08:34)
[2016-06-17] MEDS: ALBUTEROL FS 2.5 MG/0.5 ML VIAL.NEB NEB PRN ×2 (08:38→13:44)
[2016-06-17] MEDS: IPRATROPIUM NEB FS 0.5 MG/2.5 ML AMPUL.NEB NEB PRN ×2 (08:38→13:44)
[2016-06-17] MEDS: BENZONATATE 100 MG CAPSULE PO PRN (10:38)
[2016-06-17] MEDS: GUAIFENESIN/CODEINE 10 ML UDC PO PRN (13:21)
[2016-06-17] MEDS ORDERED: AZITHROMYCIN 250 MG TABLET PO ONE (15:00)
[2016-06-17] MEDS: predniSONE 20 MG TABLET PO SCH (15:39)
[2016-06-17 16:00] VITALS: BP 140/60
[2016-06-17] MEDS: RIVAROXABAN 15 MG TABLET PO SCH (17:48)
--- NOTE | 2016-06-17 18:47 | NUR ---
RN CLOSING NOTES PATIENT IN SITTING ON CHAIR BY BEDSIDE. ALERT AND ORIENTED X 4. VERBALLY RESPONSIVE WITH NO C/O PAIN DURING SHIFT. AWAITING RESULTS OF CHEST X-RAY. CONTINUES ON 02 VIA N/C AT 2LPM, TOLERATED WITH NO SIGNS OF SOB THIS TOUR. IV ACCESS ON LEFT HAND G# 22 INTACT AND PATENT. BED ON LOW POSITION, LOCKED WITH SIDE RAILS UP FOR SAFETY. ALL NEEDS AND CARE WELL PROVIDED. DUE MEDS GIVEN ORDERED. WILL ENDORSED TO GUNSTOCK SPRAY UNIT FEEDER FOR CONTINUITY OF CARE.
--- NOTE | 2016-06-17 19:10 | NUR ---
RN NOTES RECEIVED PATIENT AWAKE SITTING IN THE CHAIR WITH SON AT BEDSIDE. A/O X3. NO SIGNS OF DISTRESS, BREATHING EVEN AND UNLABORED, ON 2LPM VIA NC. DENIES ANY PAIN AND DISCOMFORT. IV ACCESS IN LEFT HAND, PATENT AND INTACT, NO SIGNS OF REDNESS OR INFILTRATION NOTED. SAFETY MEASURES IN PLACED, CALL LIGHT WITHIN REACH. WILL CONTINUE TO MONITOR.
[2016-06-17 20:00] VITALS: BP 133/74
[2016-06-17 22:00] VITALS: BP 133/74
--- NOTE | 2016-06-18 06:55 | NUR ---
RN NOTES PT AWAKE, HOB ELEVATED, NO SOB, NO SIGNS OF DISTRESS AND DISCOMFORT NOTED, TOLERATING 02 INHALATION AT 2LPM. VITAL SIGNS STABLE, NO COMPLAIN OF PAIN, NO EPISODE OF NAUSEA AND VOMITING. FALL PRECAUTION OBSERVED AND SAFETY MEASURES IN PLACED. NO SIGNIFICANT CHANGE IN CONDITION NOTED. WILL ENDORSE TO MORNING RN FOR CONTINUITY OF CARE.
--- NOTE | 2016-06-18 07:08 | NUR ---
MS RN OPENING NOTES RECEIVED PATIENT IN BED AWAKE AND WATCHING TV. HEAD OF BED ELEVATED. ALERT AND ORIENTED X 4, NO ACUTE SIGNS OF DISTRESS NOTED. ABLE TO VERBALIZED NEEDS AND CONCERNS, DENIES ANY PAIN OR DISCOMFORTS AT THIS TIME. ON 02 VIA N/C AT 2LPM, NO SIGNS OF SOB OBSERVED. IV ACCESS ON LEFT HAND INTACT AND PATENT. CALL LIGHT WITHIN EASY REACH OF PATIENT. BED LOW AND LOCKED FOR SAFETY. WILL CONTINUE TO MONITOR ACCORDINGLY.
[2016-06-18] MEDS: PANTOPRAZOLE 40 MG TABLET.DR PO SCH (07:43)
[2016-06-18 07:52] LABS: BASOPHILS % (AUTO) 0.4 % (0.0-2.0); EOSINOPHILS % (AUTO) 0.2 % (0.0-6.0); HEMATOCRIT 36 % (33-45); HEMOGLOBIN 11.6 g/dL (11.5-14.8); LYMPHOCYTES # (AUTO) 0.6 /CMM (0.8-4.8); LYMPHOCYTES % (AUTO) 19.8 % (20.0-44.0); MEAN CORPUSCULAR HEMOGLOBIN 28 PG (26.0-33.0); MEAN CORPUSCULAR HGB CONC 33 g/dl (31.0-36.0); MEAN CORPUSCULAR VOLUME 85 fL (82-100); MONOCYTES # (AUTO) 0.3 /CMM (0.1-1.30); MONOCYTES % (AUTO) 12.2 % (2.0-12.0); NEUTROPHILS # (AUTO) 1.9 /CMM (1.8-8.9); NEUTROPHILS % (AUTO) 67.4 % (43.0-81.0); PLATELET COUNT (AUTO) 327 /CMM (150-450); RDW COEFFICIENT OF VARIATION 15.5 (11.5-15.0); RED BLOOD CELL COUNT(AUTO) 4.16 MIL/uL (4.0-5.2); WHITE BLOOD COUNT (AUTO) 2.8 K/uL (4.3-11.0)
[2016-06-18 08:00] VITALS: BP 130/72
[2016-06-18 08:03] LABS: CALCIUM, SERUM 8.7 mg/dL (8.5-10.1); CREATININE 1.1 mg/dL (0.6-1.3); POTASSIUM 4.2 mmol/L (3.5-5.1)
[2016-06-18] MEDS: FUROSEMIDE 40 MG TABLET PO SCH (09:28)
[2016-06-18] MEDS: predniSONE 20 MG TABLET PO SCH (09:28)
[2016-06-18] MEDS: AMLODIPINE BESYLATE 5 MG TABLET PO SCH (09:28)
[2016-06-18] MEDS: IPRATROPIUM NEB FS 0.5 MG/2.5 ML AMPUL.NEB NEB PRN (10:58)
[2016-06-18] MEDS: ALBUTEROL FS 2.5 MG/0.5 ML VIAL.NEB NEB PRN (10:58)
[2016-06-18 11:01] LABS: ANISOCYTOSIS 1+; LYMPHOCYTES % (MANUAL) 26 % (16-48); MONOCYTES % (MANUAL) 14 % (0-11.0); NEUTROPHILS % (MANUAL) 60 (42-76); PLATELET ESTIMATE ADEQUATE
[2016-06-18 16:00] VITALS: BP 126/69
[2016-06-18] MEDS ORDERED: AZITHROMYCIN 250 MG TABLET PO SCH (16:00)
[2016-06-18] MEDS: RIVAROXABAN 15 MG TABLET PO SCH (16:51)
--- NOTE | 2016-06-18 18:46 | NUR ---
MS RN CLOSING NOTES PATIENT IN HER ROOM SITTING ON A CHAIR BY [place] WATCHING TV. ALERT AND ORIENTED X 4, NO SIGNIFICANT CHANGES NOTED THIS TOUR. ABLE TO VOICED OUT NEEDS IN BURUNDIAN, DENIES ANY PAIN OR DISCOMFORTS AT THIS TIME. SEEN AND EVALUATED BY DR CARRINGTON THIS AFTERNOON AND SAID THAT DR ANN WILL SEE HER TOMORROW. PATIENT MAINTAINED ON 02 VIA N/C AT 2LPM, TOLERATED WITH NO SIGNS OF SOB NOTED. IV ACCESS ON LEFT HAND G# 22 INTACT AND PATENT. BED ON LOW POSITION, LOCKED WITH SIDE RAILS UP FOR SAFETY. ALL NEEDS AND CARE WELL PROVIDED. DUE MEDS GIVEN ORDERED AND TOLERATED. WILL ENDORSED TO WATER VESSEL CAPTAIN FOR CONTINUITY OF CARE.
[2016-06-18 20:00] VITALS: BP 133/83
--- NOTE | 2016-06-18 20:39 | NUR ---
Received patient awake and alert, no signs of distress, no complaints. Patient sitting in chair at bedside.
--- NOTE | 2016-06-18 22:41 | NUR ---
Patient sitting in chair, no complaints no distress.
--- NOTE | 2016-06-19 00:42 | NUR ---
Patient now lying in bed, awake, no distress no complaints.
--- NOTE | 2016-06-19 04:36 | NUR ---
Patient lying in bed awake, no complaints of pain, no signs of distress. o2 at 3L via nasal cannula.
--- NOTE | 2016-06-19 07:15 | NUR ---
MS RN OPENING NOTES RECEIVED PT FROM NIGHTSHIFT NURSE IN STABLE CONDITION AWAKE AND IN BED. NO SOB OR SIGNS OF DISTRESS NOTED. BREATHING EVEN AND UNLABORED. IV ON LEFT HAND 22G INTACT AND PATENT/ NO REDNESS OR INFILTRATION NOTED. BED IN LOW LOCKED POSITION, SIDE RAILS UP X2, CALL LIGHT WITHIN REACH. WILL CONTINUE TO MONITOR.
--- NOTE | 2016-06-19 07:20 | NUR ---
MS RN OPENING NOTES RECEIVED PT FROM NIGHTSSDFT NURSE IN STABLE CONDITION SLEEPING IN BED. NO SOB OR SIGNS OF DISTRESS NOTED. BREATHING EVEN AND UNLABORED. IV ON RIGHT FOREARM 20G INTACT AND PATENT. NO REDNESS OR INFILTRATION NOTED. HOLLIS CATHETER INTACT AND DRAINING. BED IN LOW LOCKED POSITION, SIDE RAILS UP X2, CALL LIGHT WITHIN REACH. WILL CONTINUE TO MONITOR. Addendum: 06/19/16 at 0737 by MARYLOU ELDER RN PLEASE EXCUSE THIS NOTE
[2016-06-19 07:59] LABS: CALCIUM, SERUM 8.9 mg/dL (8.5-10.1); CREATININE 1.1 mg/dL (0.6-1.3); POTASSIUM 4.2 mmol/L (3.5-5.1)
[2016-06-19 08:00] VITALS: BP 155/75
[2016-06-19] MEDS: predniSONE 20 MG TABLET PO SCH (08:24)
[2016-06-19] MEDS: PANTOPRAZOLE 40 MG TABLET.DR PO SCH (08:24)
[2016-06-19] MEDS: FUROSEMIDE 40 MG TABLET PO SCH (08:25)
[2016-06-19 08:26] VITALS: BP 155/75
[2016-06-19] MEDS: AMLODIPINE BESYLATE 5 MG TABLET PO SCH (08:26)
--- NOTE | 2016-06-19 12:23 | NUR ---
MS ZENIA NOTES PT. WAS DISCHARGED FROM UNIT IN STABLE CONDITION. WAS ACCOMPANIED OFF THE UNIT BY LEAD JAVA SOFTWARE ENGINEER AND SAFELY LEFT VIA PRIVATE VEHICLE.
== END 2016-06-19 12:20 | disposition home or self-care (01) | DRG 133 ==
LOC: ER 20:58 → MED 23:50 → TELE 06-15 02:30 → MED 06-15 15:34
PROVIDERS: ADMIT Nurse Practitioner Acute Care; ATTEND Nurse Practitioner Acute Care
DX: J96.01 Acute respiratory failure with hypoxia (principal); I50.33 Acute on chronic diastolic (congestive) heart failure; D68.59 Other primary thrombophilia; I27.2 Other secondary pulmonary hypertension; J44.0 Chronic obstructive pulmonary disease with (acute) lower respiratory infection; E44.1 Mild protein-calorie malnutrition; N39.0 Urinary tract infection, site not specified; I11.0 Hypertensive heart disease with heart failure; Z68.41 Body mass index [BMI] 40.0-44.9, adult; J44.1 Chronic obstructive pulmonary disease with (acute) exacerbation; E66.01 Morbid (severe) obesity due to excess calories; B96.89 Other specified bacterial agents as the cause of diseases classified elsewhere; E78.5 Hyperlipidemia, unspecified; I87.2 Venous insufficiency (chronic) (peripheral); J98.11 Atelectasis; Z87.891 Personal history of nicotine dependence; D72.819 Decreased white blood cell count, unspecified; G47.33 Obstructive sleep apnea (adult) (pediatric); Z79.01 Long term (current) use of anticoagulants; I48.2 Chronic atrial fibrillation; J20.9 Acute bronchitis, unspecified; I34.0 Nonrheumatic mitral (valve) insufficiency
CPT/HCPCS: 36415; 71010-TC; 71020-TC; 80048-TC; 80061-TC; 80076-TC; 81000-TC; 83605-TC; 83735-TC; 83880; 84100-TC; 84484-TC; 85025-TC; 85730-TC; 87040-TC; 87086-TC; A4606; J0696; J1940; J3475; J7050; J7060; Z7610

== ENCOUNTER 2016-12-01 14:24 | Inpatient (IN) | payer OTHER ==
[~2016-12-01] VITALS: Ht 147.3 cm; Wt 102.1 kg
[~2016-12-01 14:24] MED LIST changes: +ALBU18HF2 IH; +AMLO10TA2 PO; +ASPI81TA2 PO
--- NOTE | 2016-12-01 14:35 | NUR ---
PATIENT PRESENTS TO ER C/O SOB AND EXERTIONAL SOB. PATIENT IS A/OX 4, BREATHING EVEN, BUT SLIGHTLY LABORED. PATIENTS OXYGEN SATURATION 92% ON ROOM AIR. PLACED ON 3L OXYGEN VIA NC. VITALS STABLE. SAFETY AND COMFORT MEASURES IN PLACE. AWAITING MD ORDERS.
--- NOTE | 2016-12-01 15:00 | NUR ---
PATIENT BREATHING EVEN AND UNLABORED AT THIS TIME. NO SOB PER PATIENT. O2 SATURATION 98%, WILL CONTINUE TO MONITOR.
--- NOTE | 2016-12-01 15:10 | NUR ---
NEW IV STARTED ON RAC, 18 G. BLOOD DRAWN AND SENT TO LAB.
[2016-12-01 15:24] LABS: BASOPHILS # (AUTO) 0.1 /CMM (0.0-0.2); BASOPHILS % (AUTO) 0.9 % (0.0-2.0); EOSINOPHILS # (AUTO) 0.1 /CMM (0.0-0.7); EOSINOPHILS % (AUTO) 1.2 % (0.0-6.0); HEMATOCRIT 31 % (33-45); HEMOGLOBIN 10.5 g/dL (11.5-14.8); LYMPHOCYTES # (AUTO) 0.6 /CMM (0.8-4.8); LYMPHOCYTES % (AUTO) 9.5 % (20.0-44.0); MEAN CORPUSCULAR HEMOGLOBIN 28 PG (26.0-33.0); MEAN CORPUSCULAR HGB CONC 34 g/dl (31.0-36.0); MEAN CORPUSCULAR VOLUME 84 fL (82-100); MONOCYTES # (AUTO) 0.5 /CMM (0.1-1.30); MONOCYTES % (AUTO) 7.9 % (2.0-12.0); NEUTROPHILS # (AUTO) 5.3 /CMM (1.8-8.9); NEUTROPHILS % (AUTO) 80.5 % (43.0-81.0); PLATELET COUNT (AUTO) 349 /CMM (150-450); RDW COEFFICIENT OF VARIATION 15.7 (11.5-15.0); RED BLOOD CELL COUNT(AUTO) 3.72 MIL/uL (4.0-5.2); WHITE BLOOD COUNT (AUTO) 6.6 K/uL (4.3-11.0)
[2016-12-01 15:28] LABS: CALCIUM, SERUM 8.8 mg/dL (8.5-10.1); CARBON DIOXIDE 26 mmol/L (21-32); CHLORIDE 103 mmol/L (98-107); CREATININE 1.1 mg/dL (0.6-1.3); GLUCOSE 103 mg/dL (74-106); POTASSIUM 4.1 mmol/L (3.5-5.1); SODIUM SERUM 137 mmol/L (136-145); UREA NITROGEN, BLOOD 20 mg/dL (7-18)
[2016-12-01 15:36] LABS: TROPONIN I < 0.017 ng/mL (0.00-0.056)
[2016-12-01 15:39] LABS: INR 1.01 (0.87-1.13); PROTHROMBIN TIME 10.5 SECS (9.5-12.7)
[2016-12-01] MEDS ORDERED: METO25TA6 PO (17:10)
[2016-12-01] MEDS ORDERED: RIVA10TA PO (17:10)
[2016-12-01] MEDS ORDERED: ASPI-991 PO (17:10)
--- NOTE | 2016-12-01 17:36 | NUR ---
report given to Carmen RN, continue plan of care
[2016-12-01 17:45] VITALS: BP 131/62
--- NOTE | 2016-12-01 17:45 | NUR ---
PATIENT TRANSPORTED TO [facility] VIA ACLS PROTOCOL.
--- NOTE | 2016-12-01 18:00 | NUR ---
MS RN RECEIVED A 76 YEAR OLD FEMALE NEW ADMISSION FROM ER, AWAKE,ALERT,ORIENTED X 3,ERITREAN SPEAKING, CAME IN W/ DX OF CHF,SHORTNESS OF BREATH UPON EXERTION,DENIES PAIN AT THIS TIME.WILL MONITOR PATIENT'S CONDITION.
--- NOTE | 2016-12-01 18:59 | NUR ---
MS RN ON BED,NO SOB NOTED WILL ENDORSE TO SENIOR MERCHANDISER FOR CONTINUITY OF CARE.
--- NOTE | 2016-12-01 19:30 | NUR ---
POLYMERIZATION OVEN OPERATOR NOTES RECEIVED ON BED A/O X3,CAMEROONIAN SPEAKING,OBESE,BOTH LOWER LEGS APPEARS DRY AND AND SWOLLEN,SLIGHT REDNESS ON LEFT LEFT.NOTED 1X1 OPEN WOUND ON RIGHT LOWER LEG,NO DISCHARGES NOTED. BOTH LEGS ELEVATED ON PILLOWS.SALINE LOCK RIGHT AC INTACT AND PATENT.O2 2L/NC IN USED TO KEEP O2 SAT ABOVE 90%.ABLE TO AMBULATE TO THE TOILET.CALL LIGHT 9N REACH,NEEDS ANTICIPATED.
[2016-12-01 20:00] VITALS: BP 163/82
--- NOTE | 2016-12-01 20:01 | NUR ---
CONTRACTS DIRECTOR NOTES STARTED ON BUMEX IV 10ML/HR RATE X ONE DOSE.VIA IV PUMP.WILL MONITOR URINE OUTPUT
--- NOTE | 2016-12-01 22:00 | NUR ---
IT QUALITY ASSURANCE ANALYST NOTES AWAKE,ASSISTED TO THE TOILET TO PEE
[2016-12-02] VITALS (7 sets, daily range): BP systolic 110–144; BP diastolic 52–69
--- NOTE | 2016-12-02 02:00 | NUR ---
MANAGER ALLIANCE NOTES AWAKE,HAD URGENCY TO USE THE TOILET,
--- NOTE | 2016-12-02 04:00 | NUR ---
MS RN NOTES AWAKE,REQUESTED TO HAVE DIAPER ON
--- NOTE | 2016-12-02 07:00 | NUR ---
INSTRUMENT TECH NOTES A/O X4,SLEPT WITH INTERVALS,NO EPISODE OF SOB,STILL ON DIAPER.IN NO ACUTE DISTRESS.O2 IN USED TO KEEP O2 SAT ABOVE 90%.CALL LIGHT IN REACH,NEEDS ATTENDED.
--- NOTE | 2016-12-02 07:20 | NUR ---
MOLD LAMINATOR NOTES PATIENT ALERT AND ORIENTED X3, CROATIAN SPEAKING, ON O2 AT 2LPM VIA NC AND TOLERATING WELL, NO S/SX OF RESPIRATORY DISTRESS AT THIS TIME, NEEDS ATTENDED AND MET, CALL LIGHT WITHIN REACH, SAFETY MEASURES IN PLACED, WILL CONTINUE TO MONITOR.
[2016-12-02 07:58] LABS: BASOPHILS % (AUTO) 0.3 % (0.0-2.0); EOSINOPHILS # (AUTO) 0.1 /CMM (0.0-0.7); EOSINOPHILS % (AUTO) 1.5 % (0.0-6.0); HEMATOCRIT 31 % (33-45); HEMOGLOBIN 10.5 g/dL (11.5-14.8); LYMPHOCYTES # (AUTO) 0.7 /CMM (0.8-4.8); LYMPHOCYTES % (AUTO) 9.9 % (20.0-44.0); MEAN CORPUSCULAR HEMOGLOBIN 29 PG (26.0-33.0); MEAN CORPUSCULAR HGB CONC 34 g/dl (31.0-36.0); MEAN CORPUSCULAR VOLUME 85 fL (82-100); MONOCYTES # (AUTO) 0.6 /CMM (0.1-1.30); MONOCYTES % (AUTO) 8.9 % (2.0-12.0); NEUTROPHILS # (AUTO) 5.3 /CMM (1.8-8.9); NEUTROPHILS % (AUTO) 79.4 % (43.0-81.0); PLATELET COUNT (AUTO) 320 /CMM (150-450); RDW COEFFICIENT OF VARIATION 16.9 (11.5-15.0); RED BLOOD CELL COUNT(AUTO) 3.69 MIL/uL (4.0-5.2); WHITE BLOOD COUNT (AUTO) 6.7 K/uL (4.3-11.0)
[2016-12-02 08:29] LABS: ALANINE AMINOTRANSFERASE 18 U/L (12-78); ALBUMIN 3.3 g/dL (3.4-5.0); ALKALINE PHOSPHATASE 110 U/L (46-116); ASPARTATE AMINOTRANSFERASE 15 U/L (15-37); BILIRUBIN,TOTAL 0.6 mg/dL (0.2-1.0); CALCIUM, SERUM 8.7 mg/dL (8.5-10.1); CARBON DIOXIDE 31 mmol/L (21-32); CHLORIDE 100 mmol/L (98-107); CHOLESTEROL 184 mg/dL (<200); CREATININE 1.2 mg/dL (0.6-1.3); GLUCOSE 92 mg/dL (74-106); HDL CHOLESTEROL 71 mg/dL (40-60); LDL 102 mg/dL (0-99); MAGNESIUM 1.9 mg/dL (1.8-2.4); POTASSIUM 3.6 mmol/L (3.5-5.1); SODIUM SERUM 139 mmol/L (136-145); THYROID STIMULATING HORMONE 6.197 uIU/mL (0.358-3.74); TOTAL PROTEIN, SERUM 7.1 g/dL (6.4-8.2); TRIGLYCERIDES 55 mg/dL (30-150); UREA NITROGEN, BLOOD 21 mg/dL (7-18)
--- NOTE | 2016-12-02 13:00 | NUR ---
SURFACE TO AIR WEAPONS OFFICER NOTES BLE ELEVATED, SKIN KEPT CLEAN AND DRY, RIGHT LOWER LEG OPEN WOUND COVERED WITH MEPILEX, ENCOURAGED PATIENT TO TURN AND REPOSITION.
--- NOTE | 2016-12-02 16:33 | NUR ---
NOODLE MAKER NOTES PATIENT REFUSED METOPROLOL TWICE, PER PATIENT, "I ONLY DRINK AMLODIPINE" EXPLAINED RISKS AND BENEFITS, STILL REFUSED, PATIENT VERBALIZED UNDERSTANDING.
--- NOTE | 2016-12-02 18:54 | NUR ---
RN MS NOTES PATIENT A/OX3 JAMAICAN SPEAKING, DENIES PAIN, NO SOB NOTED, BREATHING EVEN AND UNLABORED, ECHO RESULT STILL PENDING, NEEDS ATTENDED AND MET, CALL LIGHT WITHIN REACH, WILL ENDORSE TO PROCESS ARTIST FOR SARI.
--- NOTE | 2016-12-02 19:15 | NUR ---
MS/RN OPENING NOTES PT AWAKE, HOB HIGH FOWLERS. ON 2LPM O2 VIA NC, BREATHING EVEN AND UNLABORED. NO S/S OF SOB OR DISTRESS NOTED. DENIES PAIN. BLE ELEVATED. IV TO RAC PATENT AND INTACT. BED IN LOW/LOCKED POSITION, CALL LIGHT IN REACH. SIDE RAILS UPX2. WILL CONTINUE TO MONITOR
--- NOTE | 2016-12-03 06:42 | NUR ---
MS/RN CLOSING NOTES PT AWAKE, HOB ELEVATED. REMAINS ON 2LPM O2 VIA NC, BREATHING EVEN AND UNLABORED. NO S/S OF SOB, DENIES PAIN. IV TO RAC PATENT AND INTACT. MADE PT COMFORTABLE DURING SHIFT. ALL NEEDS MET. BED IN LOW/LOCKED POSITION, CALL LIGHT IN REACH. SIDE RAILS UPX2. WILL ENDORSE TO AM SHIFT SARI.
--- NOTE | 2016-12-03 07:46 | NUR ---
RECEIVED PT A/OX3. HONDURAN SPEAKING BUT UNDERSTANDS SOME KINYARWANDA. ON 2L NC SATING AT 95%. CONTINENT AND AMBULATES WITH OUT ASSISTANCE. BLE NOTED. R LEG WOUND OPENING COVERED WITH MEPILEX. ON CARDAIC DIET. R AC #20 WITH NO FLUIDS RUNNING. NO DISTRESS. NO PAIN. NO SOB NOTED. RESTING COMFORTABLY IN BED. CALL LIGHT WITHIN REACH.
[2016-12-03 08:00] VITALS: BP 144/87
[2016-12-03 08:30] VITALS: BP 144/87
[2016-12-03] MEDS ORDERED: POTA10TA PO (14:50)
[2016-12-03] MEDS ORDERED: BUME2TAB3 PO (14:50)
--- NOTE | 2016-12-03 15:30 | NUR ---
MS TOOL MACHINE SETUP OPERATOR NOTE: PT D/C HOME WITH SELF CARE. A/OX4. TOOK ALL MEDICATIONS ON TIME. VS STABLE. BP 128/57, PULSE 74, O2 90% ON ROOM AIR, RR20. NO DISTRESS NOTED. NO PAIN NOTED. TOOK ALL MEDICATIONS ON TIME. NO ADVERSE REACTIONS NOTED. PICTURE OF BLE AND WOUND ON RIGHT LOWER LEG TAKEN BEFORE D/C. WOUND CARE DONE ORDERED PER MD. IV ON R AC D/C. NO REDNESS, NO BLEEDING, NO PAIN NOTED AT SITE. ALL DISCHARGE INFORMATION PRINTED AND SIGNED BY PATIENT. ALL D/C EDUCATIONS AND PRESCRIPTIONS PROVIDED TO PATENT AND BROTHER. ALL BELONGINGS ACCOUNTED FOR. LEFT HOSPITAL VIA PRIVATE CAR.
== END 2016-12-03 15:30 | disposition home or self-care (01) | DRG 194 ==
LOC: ER 14:27 → TELE 17:44 → MED 12-02 17:03
PROVIDERS: ADMIT Nurse Practitioner Acute Care; ATTEND Nurse Practitioner Acute Care
DX: I11.0 Hypertensive heart disease with heart failure (principal); N17.0 Acute kidney failure with tubular necrosis; E43 Unspecified severe protein-calorie malnutrition; I48.2 Chronic atrial fibrillation; D63.8 Anemia in other chronic diseases classified elsewhere; Z79.899 Other long term (current) drug therapy; I50.33 Acute on chronic diastolic (congestive) heart failure; E78.5 Hyperlipidemia, unspecified; Z79.82 Long term (current) use of aspirin; E66.01 Morbid (severe) obesity due to excess calories; Z68.42 Body mass index [BMI] 45.0-49.9, adult; E03.9 Hypothyroidism, unspecified; J45.909 Unspecified asthma, uncomplicated; I89.0 Lymphedema, not elsewhere classified; D36.7 Benign neoplasm of other specified sites; Z87.891 Personal history of nicotine dependence
CPT/HCPCS: 36415; 71010-TC; 80048-TC; 80053-TC; 80061-TC; 83735-TC; 83880; 84100-TC; 84443-TC; 84484-TC; 85025-TC; 85730-TC; 87081-TC; 93307-TC; A4216; A4606; J1940; J3490; Z7610

== ENCOUNTER 2017-02-26 18:13 | Inpatient (IN) | payer OTHER ==
[~2017-02-26] VITALS: Ht 144.8 cm; Wt 100.2 kg
[~2017-02-26 18:13] MED LIST changes: +ASPI-1152 PO; -ASPI81TA2 PO; +BUME2TAB3 PO; +METO25TA6 PO; +POTA10TA PO; +RIVA10TA PO
--- NOTE | 2017-02-26 18:15 | NUR ---
BBRA 60 FROM HOME FOR SOB TODAY. BLE EDEMA. HX OF CHF. DIMINISHED LUNG SOUNDS. BREATHING EVEN, SLIGHTLY LABORED. A/OX 4. VITALS STABLE. PLACED ON 5L OXYGEN VIA NC. SAFETY AND COMFORT MEASURES IN PLACE. AWAITING MD ORDERS.
[2017-02-26] MEDS ORDERED: NITROGLYCERIN 0.4 MG/TAB BOTTLE SL ONE (18:30)
[2017-02-26] MEDS ORDERED: NITROGLYCERIN 0.4 MG/TAB BOTTLE ONE (18:40)
[2017-02-26 18:42] LABS: BASOPHILS % (AUTO) 0.4 % (0.0-2.0); EOSINOPHILS # (AUTO) 0.1 /CMM (0.0-0.7); EOSINOPHILS % (AUTO) 1.5 % (0.0-6.0); HEMATOCRIT 33 % (33-45); HEMOGLOBIN 11.1 g/dL (11.5-14.8); LYMPHOCYTES # (AUTO) 0.6 /CMM (0.8-4.8); LYMPHOCYTES % (AUTO) 7.6 % (20.0-44.0); MEAN CORPUSCULAR HEMOGLOBIN 27 PG (26.0-33.0); MEAN CORPUSCULAR HGB CONC 33 g/dl (31.0-36.0); MEAN CORPUSCULAR VOLUME 82 fL (82-100); MONOCYTES # (AUTO) 0.5 /CMM (0.1-1.30); MONOCYTES % (AUTO) 6.8 % (2.0-12.0); NEUTROPHILS # (AUTO) 6.4 /CMM (1.8-8.9); NEUTROPHILS % (AUTO) 83.7 % (43.0-81.0); PLATELET COUNT (AUTO) 346 /CMM (150-450); RDW COEFFICIENT OF VARIATION 17.6 (11.5-15.0); RED BLOOD CELL COUNT(AUTO) 4.06 MIL/uL (4.0-5.2); WHITE BLOOD COUNT (AUTO) 7.7 K/uL (4.3-11.0)
--- NOTE | 2017-02-26 18:45 | NUR ---
dev technical mgr at bedside.
[2017-02-26 18:48] LABS: CARBON DIOXIDE 28 mmol/L (21-32); CHLORIDE 102 mmol/L (98-107); CREATININE 1.1 mg/dL (0.6-1.3); GLUCOSE 119 mg/dL (74-106); POTASSIUM 3.8 mmol/L (3.5-5.1); SODIUM SERUM 136 mmol/L (136-145); UREA NITROGEN, BLOOD 23 mg/dL (7-18)
[2017-02-26 18:51] LABS: INR 1.12 (0.87-1.13); PROTHROMBIN TIME 11.6 SECS (9.5-12.7)
[2017-02-26 18:56] LABS: TROPONIN I < 0.017 ng/mL (0.00-0.056)
[2017-02-26 19:00] LABS: ALANINE AMINOTRANSFERASE 14 U/L (12-78); ALBUMIN 3.7 g/dL (3.4-5.0); ALKALINE PHOSPHATASE 144 U/L (46-116); ASPARTATE AMINOTRANSFERASE 16 U/L (15-37); B-TYPE NATRIURETIC PEPTIDE 1258 PG/ML (0-125); BILIRUBIN,DIRECT 0.1 mg/dL (0.0-0.2); BILIRUBIN,TOTAL 0.6 mg/dL (0.2-1.0); TOTAL PROTEIN, SERUM 7.8 g/dL (6.4-8.2)
--- NOTE | 2017-02-26 19:08 | NUR ---
REPORT GIVEN TO GRANT KNUTSON FOR SARI.
--- NOTE | 2017-02-26 19:10 | NUR ---
ASSUMED CARE: PT A/O X 4, BREATHING EVNEN, SAT 100% ON 5L VIA SIMPLE MASK, NO C/O PAIN AT THIS TIME, UPDATED PT ON PLAN OF CARE.
[2017-02-26] MEDS ORDERED: BUMETANIDE INJ 0.25 MG/ML VIAL IV ONE (19:30)
[2017-02-26] MEDS ORDERED: BUMETANIDE INJ 0.25 MG/ML VIAL ONE (20:11)
--- NOTE | 2017-02-26 20:21 | NUR ---
CALLED [employer], VASCULAR TECH WAS PAGED.
--- NOTE | 2017-02-26 20:31 | NUR ---
[facility]. WILL CALL FOR REPORT.
--- NOTE | 2017-02-26 20:54 | NUR ---
REPORT CALLED TO GLORIA LEE. WILL TRANSPORT PT VIA ACLS PROTOCOL.
[2017-02-26] MEDS ORDERED: ONDANSETRON HCL/PF 4 MG/2 ML VIAL IVP PRN (21:00)
[2017-02-26] MEDS ORDERED: ZOLPIDEM TARTRATE 5 MG TABLET PO PRN (21:00)
[2017-02-26] MEDS ORDERED: HYDROCODONE/APAP 5/325MG 1 EACH TABLET PO PRN (21:00)
[2017-02-26] MEDS ORDERED: Z GUARD REMEDY 2 OZ OINT TP PRN (21:00)
[2017-02-26] MEDS ORDERED: MAGNESIUM HYDROXIDE 30 ML UDC PO PRN (21:00)
[2017-02-26] MEDS ORDERED: ACETAMINOPHEN 325 MG TABLET PO PRN (21:00)
--- NOTE | 2017-02-26 21:30 | NUR ---
PT TRANSFERED TO 119 VIA OSMIN JASSO PROTOCOL
--- NOTE | 2017-02-26 21:40 | NUR ---
CLOTH BLEACHING RANGE TENDER NOTED, PATIENT ADMITTED FROM ER DEPARTMENT ACCOMPANIED BY 2 RNS, DAUGHTER AND , ALERT AND ORIENTED ABLE TO VERBALIZED CONCERNS, NOTED WITH SOB AND AUDIBLE WHEEZES, ON 4L VIA NC SATURATING @ 94-97%, 84, 97.5, 150/73, 25, 0/10, ADMITTED DIAGNOSES IS CHF EXACERBATION, UNDER [facility] [employer] TRAIN CONDUCTOR, BUMEX AND NITRO SL GIVEN AT ER DEPARTMENT AND NO MEDICATIONS DUE AT THIS TIME, ABDOMEN H/O DIASTOLIC CF, HTN, ASTHMA, ANEMIA, BLE LYMPHEDEMA, SOFT AND NON DISTENDED WITH POSITIVE BS UPON AUSCULTATION, AND X1 BOWEL MOVEMENT AND X1 VOID RIGHT AFTER ADMISSION, ABLE TO MOVE FROM BED WITH ASSISTANCE AND USES BED COMMODE, BED BATH AND SKIN CARE PROVIDED, BED LOCKED AND IN LOWEST POSITION, INDEPENDENT WITH REPOSITION, ASSISTANCE PROVIDED AT ALL TIMES, CALL LIGHT W/I REACH, , WILL CONTINUE TO MONITOR CLOSELY.
[2017-02-26 22:37] VITALS: BP 150/73
[2017-02-27] VITALS (8 sets, daily range): BP systolic 120–150; BP diastolic 45–81
[2017-02-27 07:30] LABS: CALCIUM, SERUM 8.8 mg/dL (8.5-10.1); CARBON DIOXIDE 27 mmol/L (21-32); CHLORIDE 107 mmol/L (98-107); CREATININE 1.2 mg/dL (0.6-1.3); GLUCOSE 101 mg/dL (74-106); MAGNESIUM 2.2 mg/dL (1.8-2.4); PHOSPHORUS 3.9 mg/dL (2.5-4.9); POTASSIUM 4.7 mmol/L (3.5-5.1); SODIUM SERUM 142 mmol/L (136-145); UREA NITROGEN, BLOOD 24 mg/dL (7-18)
--- NOTE | 2017-02-27 07:30 | NUR ---
ELECTRICIAN SUPERVISOR SUBSTATION OPENING RECEIVED PATIENT SLEEPING AWAKE TO NAME. PATIENT STATES BREATHING IS BETTER BUT STILL SOB. HOB ELEVATED AND PATIENT REPOSITIONED FOR INCREASED COMFORT. WILL TITRATE O2 TOLERATED IF APPLICABLE. ALL NEEDS IN REACH, BED LOWERED AND LOCKED, RAILS UPX3 FOR SAFETY. TELE FIB CONTROLLED 79. WILL ROUND Q2H OR LESS PER NEEDS.
[2017-02-27 07:31] LABS: BASOPHILS % (AUTO) 0.3 % (0.0-2.0); EOSINOPHILS # (AUTO) 0.1 /CMM (0.0-0.7); EOSINOPHILS % (AUTO) 1.7 % (0.0-6.0); HEMATOCRIT 30 % (33-45); HEMOGLOBIN 10.2 g/dL (11.5-14.8); LYMPHOCYTES # (AUTO) 0.5 /CMM (0.8-4.8); LYMPHOCYTES % (AUTO) 8.8 % (20.0-44.0); MEAN CORPUSCULAR HEMOGLOBIN 28 PG (26.0-33.0); MEAN CORPUSCULAR HGB CONC 34 g/dl (31.0-36.0); MEAN CORPUSCULAR VOLUME 83 fL (82-100); MONOCYTES # (AUTO) 0.6 /CMM (0.1-1.30); MONOCYTES % (AUTO) 9.4 % (2.0-12.0); NEUTROPHILS # (AUTO) 4.9 /CMM (1.8-8.9); NEUTROPHILS % (AUTO) 79.8 % (43.0-81.0); PLATELET COUNT (AUTO) 285 /CMM (150-450); RDW COEFFICIENT OF VARIATION 17.6 (11.5-15.0); RED BLOOD CELL COUNT(AUTO) 3.65 MIL/uL (4.0-5.2); WHITE BLOOD COUNT (AUTO) 6.1 K/uL (4.3-11.0)
[2017-02-27] MEDS ORDERED: BUMETANIDE INJ 0.25 MG/ML VIAL IV SCH ×2 (09:00)
[2017-02-27] MEDS: ASPIRIN EC 81 MG TABLET.DR PO SCH (09:57)
[2017-02-27] MEDS: LOSARTAN/HCTZ 50-12.5MG/ 1 EA TABLET PO SCH (09:57)
[2017-02-27] MEDS: METOPROLOL TARTRATE 25 MG TABLET PO SCH ×2 (09:57→16:26)
[2017-02-27] MEDS: AMLODIPINE BESYLATE 10 MG TABLET PO SCH (09:57)
[2017-02-27] MEDS ORDERED: ALBUTEROL FS 2.5 MG/3 ML VIAL.NEB NEB PRN (13:30)
--- NOTE | 2017-02-27 13:47 | NUR ---
CLEANING MAID NOTES MESSAGE TO TO NOTIFY PER PHARMACY THERE IS A SHORTAGE OF BUMEX AND WANT TO CHANGE TO LASIX
--- NOTE | 2017-02-27 14:20 | NUR ---
TACTICAL AIR DEFENSE CONTROLLER NOTES PER MD OK TO DC BUMEX AND ORDER LASIX 80MG IVP DAILY (EQUIVALENT TO BUMEX 2MG)
[2017-02-27] MEDS: FUROSEMIDE 40 MG/4 ML VIAL IV SCH (14:35)
[2017-02-27] MEDS: RIVAROXABAN 15 MG TABLET PO SCH (16:27)
--- NOTE | 2017-02-27 18:51 | NUR ---
CASH REGISTER OPERATOR CLOSING PATIENT STABLE NO COMPLICATIONS NOTED. ALL DUE MEDS GIVEN AND ALL NEEDS MET. PATIENT NEEDS IN REACH. BED LOWERED AND LOCKED, RAILS UPX3 FOR SAFETY AND BED ALARM ON. CARE WILL BE ENDORSED TO RN FOR SARI
[2017-02-28] VITALS: BP 140/68
[2017-02-28 04:00] VITALS: BP 131/68
[2017-02-28 06:49] LABS: BASOPHILS % (AUTO) 0.3 % (0.0-2.0); EOSINOPHILS # (AUTO) 0.2 /CMM (0.0-0.7); EOSINOPHILS % (AUTO) 2.7 % (0.0-6.0); HEMATOCRIT 31 % (33-45); HEMOGLOBIN 10.4 g/dL (11.5-14.8); LYMPHOCYTES # (AUTO) 0.7 /CMM (0.8-4.8); LYMPHOCYTES % (AUTO) 11.4 % (20.0-44.0); MEAN CORPUSCULAR HEMOGLOBIN 28 PG (26.0-33.0); MEAN CORPUSCULAR HGB CONC 34 g/dl (31.0-36.0); MEAN CORPUSCULAR VOLUME 83 fL (82-100); MONOCYTES # (AUTO) 0.5 /CMM (0.1-1.30); MONOCYTES % (AUTO) 8.6 % (2.0-12.0); NEUTROPHILS # (AUTO) 4.8 /CMM (1.8-8.9); PLATELET COUNT (AUTO) 277 /CMM (150-450); RDW COEFFICIENT OF VARIATION 18.7 (11.5-15.0); RED BLOOD CELL COUNT(AUTO) 3.69 MIL/uL (4.0-5.2); WHITE BLOOD COUNT (AUTO) 6.2 K/uL (4.3-11.0)
[2017-02-28 07:00] LABS: CALCIUM, SERUM 8.6 mg/dL (8.5-10.1); CARBON DIOXIDE 29 mmol/L (21-32); CHLORIDE 102 mmol/L (98-107); CREATININE 1.3 mg/dL (0.6-1.3); GLUCOSE 98 mg/dL (74-106); SODIUM SERUM 140 mmol/L (136-145); UREA NITROGEN, BLOOD 24 mg/dL (7-18)
--- NOTE | 2017-02-28 07:30 | NUR ---
BUSINESS SUPERVISOR INITIAL NOTES RECEIVED PATIENT SLEEPING IN BED, EASY TO AROUSE, BULGARIAN SPEAKING AOX3, ON 4L NC NO SIGNS OF DISTRESS 97% O2, ON TELE MONITOR 64 AFIB/ AFLUTTER, ABLE TO USE DIAPER OR COMMODE, IV LAC NOT PATENT INFILTRATED WILL DC AND START NEW ONE, BED IN LOW AND LOCKED POSITION, CALL LIGHT WITHIN REACH, WILL CONTINUE TO MONITOR.
[2017-02-28 08:00] VITALS: BP 123/70
[2017-02-28] MEDS: ASPIRIN EC 81 MG TABLET.DR PO SCH (08:59)
[2017-02-28] MEDS: FUROSEMIDE 40 MG/4 ML VIAL IV SCH (08:59)
[2017-02-28] MEDS: METOPROLOL TARTRATE 25 MG TABLET PO SCH ×2 (09:00→16:38)
[2017-02-28] MEDS: AMLODIPINE BESYLATE 10 MG TABLET PO SCH (09:00)
[2017-02-28] MEDS: LOSARTAN/HCTZ 50-12.5MG/ 1 EA TABLET PO SCH (09:00)
[2017-02-28 12:00] VITALS: BP 128/61
[2017-02-28 16:00] VITALS: BP 134/80
[2017-02-28] MEDS: RIVAROXABAN 15 MG TABLET PO SCH (16:41)
--- NOTE | 2017-02-28 18:51 | NUR ---
MOTEL CLERK END NOTES PATIENT RESTING IN BED, NO SIGNS OF DISTRESS, ALL NEEDS MET, WILL ENDORSE TO LANDSCAPER HELPER FOR CONTINUITY OF CARE
[2017-02-28 20:00] VITALS: BP 118/58
--- NOTE | 2017-02-28 20:00 | NUR ---
RN NOTES NO DISTRESS NOTED, IN BED RESTING COMFORTABLY. BREATHING EVEN AND UNLABORED. NO COMPLAINT OF PAIN OR DISCOMFORT. ALERT AND ORIENTED. VITAL SIGNS WNL. WILL CONTINUE TO MONITOR.
[2017-03-01] VITALS: BP 106/61
[2017-03-01 04:00] VITALS: BP 122/65
--- NOTE | 2017-03-01 06:43 | NUR ---
RN CLOSING NOTES NO RESPIRATORY DISTRESS OR SHORTNESS OF BREATH. BREATHING EVEN AND UNLABORED. NO COMPLAINT OF PAIN OR DISCOMFORT. ALERT AND ORIENTED. NEEDS ATTENDED. WILL ENDORSE TO AM SHIFT FOR CONTINUITY OF CARE.
[2017-03-01 08:00] VITALS: BP 148/80
[2017-03-01] MEDS ORDERED: MUPIROCIN OINT 2% 22 GM TUBE SCH (09:00)
[2017-03-01] MEDS: LOSARTAN/HCTZ 50-12.5MG/ 1 EA TABLET PO SCH (09:13)
[2017-03-01] MEDS: ASPIRIN EC 81 MG TABLET.DR PO SCH (09:13)
[2017-03-01] MEDS: FUROSEMIDE 40 MG/4 ML VIAL IV SCH (09:13)
[2017-03-01] MEDS: METOPROLOL TARTRATE 25 MG TABLET PO SCH ×2 (09:14→18:03)
[2017-03-01] MEDS: AMLODIPINE BESYLATE 10 MG TABLET PO SCH (09:14)
[2017-03-01 12:00] VITALS: BP 104/73
[2017-03-01 18:03] VITALS: BP 109/51
[2017-03-01] MEDS: RIVAROXABAN 15 MG TABLET PO SCH (18:26)
== END 2017-03-01 18:50 | disposition home or self-care (01) | DRG 194 ==
LOC: ER 18:14 → TELE1 20:23
PROVIDERS: ADMIT Nurse Practitioner Acute Care; ATTEND Nurse Practitioner Acute Care
DX: I11.0 Hypertensive heart disease with heart failure (principal); N17.0 Acute kidney failure with tubular necrosis; I48.2 Chronic atrial fibrillation; E03.9 Hypothyroidism, unspecified; R53.2 Functional quadriplegia; Z68.42 Body mass index [BMI] 45.0-49.9, adult; D36.7 Benign neoplasm of other specified sites; D63.8 Anemia in other chronic diseases classified elsewhere; Z79.01 Long term (current) use of anticoagulants; E78.5 Hyperlipidemia, unspecified; I50.33 Acute on chronic diastolic (congestive) heart failure; I89.0 Lymphedema, not elsewhere classified; J45.909 Unspecified asthma, uncomplicated; Z87.891 Personal history of nicotine dependence; Z79.82 Long term (current) use of aspirin; E66.01 Morbid (severe) obesity due to excess calories
CPT/HCPCS: 36415; 71045; 80048-TC; 80076-TC; 83605-TC; 83735-TC; 83880; 84100-TC; 84439-TC; 84484-TC; 85025-TC; 85730-TC; 87040-TC; 87081-TC; 93970-TC; A4606; J1940; J3490; Z7610

== ENCOUNTER 2017-03-21 00:57 | Inpatient (IN) | payer OTHER ==
[~2017-03-21] VITALS: Ht 157.5 cm; Wt 98.9 kg
--- NOTE | 2017-03-21 01:02 | NUR ---
BB RA860 FROM HOME C/O "R LOWER BACK PAIN AND NAUSEA X1 DAY". PT AAXO3. SKIN IS WARM AND PINK. RESPIRATORY RATE EVEN AND UNLABORED. SON IS BEDSIDE. VSS AND NO S/S OF ACUTE DISTRESS. AWAITING MD ALDRICH.
--- NOTE | 2017-03-21 01:05 | NUR ---
BEDSIDE FOR EVAL.
[2017-03-21] MEDS ORDERED: ONDANSETRON HCL/PF 4 MG/2 ML VIAL ONE (01:30)
[2017-03-21] MEDS ORDERED: IV NS 0.9% 500 ML BAG IV ONE (01:30)
[2017-03-21] MEDS ORDERED: ONDANSETRON HCL/PF 4 MG/2 ML VIAL IV ONE (01:30)
--- NOTE | 2017-03-21 01:30 | NUR ---
RADIOLOGY BEDSIDE FOR CHEST X-RAY
[2017-03-21 01:37] LABS: BASOPHILS % (AUTO) 0.2 % (0.0-2.0); EOSINOPHILS % (AUTO) 0.1 % (0.0-6.0); HEMATOCRIT 35 % (33-45); HEMOGLOBIN 11.9 g/dL (11.5-14.8); LYMPHOCYTES # (AUTO) 0.4 /CMM (0.8-4.8); LYMPHOCYTES % (AUTO) 1.9 % (20.0-44.0); MEAN CORPUSCULAR HEMOGLOBIN 28 PG (26.0-33.0); MEAN CORPUSCULAR HGB CONC 34 g/dl (31.0-36.0); MEAN CORPUSCULAR VOLUME 82 fL (82-100); MONOCYTES # (AUTO) 0.2 /CMM (0.1-1.30); MONOCYTES % (AUTO) 0.9 % (2.0-12.0); NEUTROPHILS # (AUTO) 17.8 /CMM (1.8-8.9); NEUTROPHILS % (AUTO) 96.9 % (43.0-81.0); PLATELET COUNT (AUTO) 290 /CMM (150-450); RDW COEFFICIENT OF VARIATION 17.5 (11.5-15.0); RED BLOOD CELL COUNT(AUTO) 4.27 MIL/uL (4.0-5.2); WHITE BLOOD COUNT (AUTO) 18.3 K/uL (4.3-11.0)
[2017-03-21 01:53] LABS: INR 1.28 (0.87-1.13)
[2017-03-21 01:56] LABS: ALANINE AMINOTRANSFERASE 17 U/L (12-78); ALKALINE PHOSPHATASE 153 U/L (46-116); ASPARTATE AMINOTRANSFERASE 16 U/L (15-37); BILIRUBIN,DIRECT 0.1 mg/dL (0.0-0.2); BILIRUBIN,TOTAL 0.5 mg/dL (0.2-1.0); CALCIUM, SERUM 9.7 mg/dL (8.5-10.1); CARBON DIOXIDE 33 mmol/L (21-32); CHLORIDE 88 mmol/L (98-107); CREATININE 2.4 mg/dL (0.6-1.3); GLUCOSE 143 mg/dL (74-106); POTASSIUM 3.3 mmol/L (3.5-5.1); SODIUM SERUM 133 mmol/L (136-145); TOTAL PROTEIN, SERUM 8.6 g/dL (6.4-8.2)
[2017-03-21 01:57] LABS: BAND % (MANUAL) 2 % (0.0-5.0); LYMPHOCYTES % (MANUAL) 2 % (16-48); MONOCYTES % (MANUAL) 4 % (0-11.0); NEUTROPHILS % (MANUAL) 92 (42-76); UREA NITROGEN, BLOOD 83 mg/dL (7-18)
[2017-03-21 01:58] LABS: TROPONIN I < 0.017 ng/mL (0.00-0.056)
--- NOTE | 2017-03-21 02:00 | NUR ---
PT TO CT
[2017-03-21 02:15] LABS: APPEARANCE,URINE CLEAR (CLEAR); BILIRUBIN,URINE NEGATIVE (NEGATIVE); BLOOD, URINE NEGATIVE Ery/uL (NEGATIVE); KETONES,URINE NEGATIVE (NEGATIVE); LEUKOCYTE ESTERASE ,URINE 1+ (NEGATIVE); NITRITE, URINE NEGATIVE (NEGATIVE); PH,URINE 5.5 (5.0-8.0); PROTEIN,URINE NEGATIVE (NEGATIVE); UGLUCOSE NEGATIVE (NEGATIVE); UROBILINOGEN,URINE 0.2 EU/dL (0.2)
[2017-03-21 02:16] LABS: COLOR,URINE STRAW (YELLOW)
[2017-03-21 02:20] LABS: BACTERIA,URINE Few /HPF (None Seen); RBC,URINE 0-2 /HPF (0-2); SQUAMOUS EPITHELIAL CELL,UR Few /HPF (None Seen)
[2017-03-21] MEDS ORDERED: IV NS 0.9% 1,000 ML BAG IV ONE (02:30)
--- NOTE | 2017-03-21 02:30 | NUR ---
TELE BED 328-2
--- NOTE | 2017-03-21 02:51 | NUR ---
GAVE REPORT TO SUPERVISOR COAL HANDLINGZENIA MCKEON FOR SARI. AWAITING CT TO BE RESULTED BEFORE MOVING PT UPSTAIRS PER MD.
[2017-03-21 02:57] LABS: URIC ACID 12.1 mg/dL (2.6-7.2)
[2017-03-21] MEDS ORDERED: ONDANSETRON HCL/PF 4 MG/2 ML VIAL IVP PRN (03:00)
[2017-03-21] MEDS ORDERED: MAG HYDROX/AL HYDROX/SIMETH 30 ML UDC PO PRN (03:00)
[2017-03-21] MEDS ORDERED: HYDROCODONE/APAP 5/325MG 1 EACH TABLET PO PRN (03:00)
[2017-03-21] MEDS ORDERED: ALBUTEROL SULFATE 8 GM HFA.AER.AD IH PRN (03:00)
[2017-03-21] MEDS ORDERED: Z GUARD REMEDY 2 OZ OINT TP PRN (03:00)
[2017-03-21] MEDS ORDERED: ZOLPIDEM TARTRATE 5 MG TABLET PO PRN (03:00)
--- NOTE | 2017-03-21 03:40 | NUR ---
TELE/RN RECEIVE PATIENT FROM E.R. VIA [employer]. PATIENT IS AWAKE, ALERT, ORIENTED, COMFORTABLE, NO C/O PAIN AT THIS TIME, ADMISSION DONE PER PROTOCOL, PATIENT SPEAKS AUSTRALIAN ONLY, CHUCKY RN, INTERPRETED FOR THE PATIENT. PATIENT IS A POOR HISTORIAN AND UNABLE TO ANSWER TO SOME QUESTIONS. PATIENT ALSO REFUSED TO ANSWER TO SOME QUESTIONS. ADMISSION INFORMATIONS OBTAINED FROM E.R.'S NOTES. PATIENT REFUSED SKIN ASSESSMENT AND PHOTOS. PLAN OF CARE DISCUSSED WITH THE PATIENT, VERBALIZED UNDERSTANDING AND AGREEMENT, TAUGHT THE USE OF CALL LIGHT AND PLACED IT AT BEDSIDE WITHIN REACH. WILL MONITOR.
[2017-03-21 03:45] VITALS: BP 102/51
[2017-03-21] MEDS: IV NS 0.9% 1,000 ML IV PRN (04:04)
[2017-03-21] MEDS ORDERED: CEFTRIAXONE 1 G VIAL ONE (04:36)
[2017-03-21] MEDS: CEFTRIAXONE 1 G in IV D5W 50 ML IV SCH (04:43)
[2017-03-21] MEDS ORDERED: HYDROCODONE/APAP 5/325MG 1 EACH TABLET ONE (05:03)
--- NOTE | 2017-03-21 05:03 | NUR ---
TELE/RN K=3.3 IN E.R. AND WAS NOT REPLACED. NOTIFIED DR. QUIROGA, NO ORDER WAS RECEIVED. PER MD, WAIT TILL A.M.
--- NOTE | 2017-03-21 06:14 | NUR ---
TELE/RN PATIENT AWAKE, TALKING ON THE PHONE AT THIS TIME, COMFORTABLE, NO C/O PAIN, ALL NEEDS ATTENDED AT THIS TIME. WILL CONTINUE TO MONITOR.
--- NOTE | 2017-03-21 07:32 | NUR ---
RN OPENING NOTES RECEIVED PATIENT RESTING COMFORTABLY IN BED. AOX3 ALBANIAN SPEAKING. BILATERAL LEG SWELLING NOTED. DENIES LEG PAIN. RESPIRATIONS EVEN AND UNLABORED. NO ACUTE DISTRESS. DENIES SOB AND CP. COMPLAINING OF MILD HEADACHE. IV ACCESS IN THE LAC 18G PATENT AND INTACT. NS RUNNING AT 75ML/HR. BED LOCKED IN THE LOWEST POSITION WITH SIDE RAILS UP X2. CALL LIGHT WITHIN REACH. WILL CONTINUE TO MONITOR, ASSESS AND EDUCATE PATIENT THROUGHOUT SHIFT.
[2017-03-21 08:00] VITALS: BP 107/58
[2017-03-21] MEDS: AMLODIPINE BESYLATE 10 MG TABLET PO SCH (09:00)
[2017-03-21] MEDS: METOPROLOL TARTRATE 25 MG TABLET PO SCH ×2 (09:00→17:30)
[2017-03-21] MEDS ORDERED: MORPHINE SULFATE INJ 4 MG/ML DISP.SYRIN IV PRN (09:00)
[2017-03-21] MEDS ORDERED: BUMETANIDE (1 MG) 1 MG TABLET PO SCH (09:00)
--- NOTE | 2017-03-21 09:00 | NUR ---
RN NON ADMIN NOTES HELD BP MEDS. PATIENT BP LOW. WILL CONTINUE TO MONITOR.
[2017-03-21] MEDS: ACETAMINOPHEN 325 MG TABLET PO PRN ×2 (10:07→18:09)
[2017-03-21] MEDS: ASPIRIN EC 81 MG TABLET.DR PO SCH (10:29)
[2017-03-21] MEDS ORDERED: POTASSIUM CHLORIDE 10 MEQ TABLET.SA PO ONE (10:30)
[2017-03-21 16:00] VITALS: BP 113/63
[2017-03-21] MEDS: RIVAROXABAN 10 MG TABLET PO SCH (17:12)
--- NOTE | 2017-03-21 18:59 | NUR ---
RN CLOSING NOTES PATIENT RESTING COMFORTABLY IN BED. DENIES ANY PAIN AT THIS TIME. CONDITION REMAINS UNCHANGED. AOX4. RESPIRATIONS EVEN AND UNLABORED. NO ACUTE DISTRESS. DENIES SOB AND CP. NO S/S OF PE. IV ACCESS IN THE LAC 18G PATENT AND INTACT WITH NS RUNNING AT 75ML/HR. BED LOCKED IN THE LOWEST POSITION WITH SIDE RAILS UP X2. CALL LIGHT WITHIN REACH. ALL NEEDS MET. ALL MEDS GIVEN APPROPRIATE. WILL ENDORSE TO NIGHT RN FOR SARI.
--- NOTE | 2017-03-21 19:30 | NUR ---
MS RN INITIAL NOTES PT IS RESTING IN BED, AWAKE AND ALERT. NO SIGNS OF SOB OR DISTRESS, BREATHING EVENLY AND UNLABORED ON RA. O2 SAT NOTED TO BE AT 89%, PLACED PT ON NC 2L. DENIES PAIN AT THIS TIME. IV ACCESS IS INTACT AND PATENT WITH NS AT 75ML. URINE SAMPLE STILL NEEDING TO BE COLLECTED. BED IS IN LOW AND LOCKED POSITION, CALL LIGHT WITHIN REACH. WILL CONTINUE TO MONITOR PT
[2017-03-21 20:00] VITALS: BP 92/44
[2017-03-22] VITALS: BP 113/59
[2017-03-22] MEDS: CEFTRIAXONE 1 G in IV D5W 50 ML IV SCH (02:02)
[2017-03-22 04:00] VITALS: BP 119/60
[2017-03-22 06:37] LABS: BASOPHILS % (AUTO) 0.2 % (0.0-2.0); EOSINOPHILS % (AUTO) 0.4 % (0.0-6.0); HEMATOCRIT 28 % (33-45); HEMOGLOBIN 9.3 g/dL (11.5-14.8); LYMPHOCYTES # (AUTO) 0.5 /CMM (0.8-4.8); LYMPHOCYTES % (AUTO) 7.9 % (20.0-44.0); MEAN CORPUSCULAR HEMOGLOBIN 28 PG (26.0-33.0); MEAN CORPUSCULAR HGB CONC 34 g/dl (31.0-36.0); MEAN CORPUSCULAR VOLUME 83 fL (82-100); MONOCYTES # (AUTO) 0.4 /CMM (0.1-1.30); MONOCYTES % (AUTO) 6.5 % (2.0-12.0); NEUTROPHILS # (AUTO) 5.6 /CMM (1.8-8.9); PLATELET COUNT (AUTO) 201 /CMM (150-450); RDW COEFFICIENT OF VARIATION 18.2 (11.5-15.0); RED BLOOD CELL COUNT(AUTO) 3.33 MIL/uL (4.0-5.2); WHITE BLOOD COUNT (AUTO) 6.6 K/uL (4.3-11.0)
[2017-03-22 06:43] LABS: INR 1.07 (0.87-1.13)
--- NOTE | 2017-03-22 06:46 | NUR ---
MS RN CLOSING NOTES PT IS IN BED RESTING. NO SIGNS OF SOB OR DISTRESS. BREATHING EVENLY AND UNLABORED ON 3L NC. IV FLUIDS RUNNING AT 75 ML/HR. URINE COLLECTED. NO ACUTE CHANGES THROUGHOUT THE SHIFT. ALL NEEDS WERE ANTICIPATED AND MET. BED IS IN LOW AND LOCKED POSITION, CALL LIGHT WITHIN REACH. WILL ENDORSE TO DAYSHIFT
[2017-03-22 06:50] LABS: APPEARANCE,URINE CLEAR (CLEAR); BILIRUBIN,URINE NEGATIVE (NEGATIVE); BLOOD, URINE NEGATIVE Ery/uL (NEGATIVE); COLOR,URINE YELLOW (YELLOW); KETONES,URINE NEGATIVE (NEGATIVE); LEUKOCYTE ESTERASE ,URINE 1+ (NEGATIVE); NITRITE, URINE NEGATIVE (NEGATIVE); PH,URINE 6.5 (5.0-8.0); PROTEIN,URINE NEGATIVE (NEGATIVE); UGLUCOSE NEGATIVE (NEGATIVE); UROBILINOGEN,URINE 0.2 EU/dL (0.2)
[2017-03-22 06:59] LABS: BACTERIA,URINE Few /HPF (None Seen); RBC,URINE 0-2 /HPF (0-2)
[2017-03-22 07:02] LABS: CREATININE, URINE 78.5 MG/DL (30.0-125.0); URINE TOTAL PROTEIN 18.5 mg/dL (0-11.9)
[2017-03-22 07:08] LABS: CREATINE KINASE, TOTAL 61 U/L (26-192)
[2017-03-22 07:09] LABS: ALANINE AMINOTRANSFERASE 14 U/L (12-78); ALBUMIN 2.9 g/dL (3.4-5.0); ALKALINE PHOSPHATASE 101 U/L (46-116); ASPARTATE AMINOTRANSFERASE 18 U/L (15-37); BILIRUBIN,TOTAL 0.3 mg/dL (0.2-1.0); CARBON DIOXIDE 32 mmol/L (21-32); CHLORIDE 95 mmol/L (98-107); GLUCOSE 105 mg/dL (74-106); MAGNESIUM 2.6 mg/dL (1.8-2.4); PHOSPHORUS 4.1 mg/dL (2.5-4.9); POTASSIUM 3.6 mmol/L (3.5-5.1); SODIUM SERUM 135 mmol/L (136-145); TOTAL PROTEIN, SERUM 6.9 g/dL (6.4-8.2); UREA NITROGEN, BLOOD 71 mg/dL (7-18)
--- NOTE | 2017-03-22 07:42 | NUR ---
RN OPENING NOTES RECEIVED PATIENT RESTING COMFORTABLY IN BED. AOX3 [place] SPEAKING. BILATERAL LEG SWELLING NOTED. DENIES LEG PAIN. RESPIRATIONS EVEN AND UNLABORED. NO ACUTE DISTRESS. DENIES SOB AND CP. SATURATING ADEQUATELY ON 2LPM. DENIES ANY PAIN. IV ACCESS IN THE LAC 18G PATENT AND INTACT. NS RUNNING AT 75ML/HR. BED LOCKED IN THE LOWEST POSITION WITH SIDE RAILS UP X2. CALL LIGHT WITHIN REACH. WILL CONTINUE TO MONITOR, ASSESS AND EDUCATE PATIENT THROUGHOUT SHIFT.
[2017-03-22 08:00] VITALS: BP 106/57
[2017-03-22 08:43] LABS: EOSINOPHIL,URINE None Seen
[2017-03-22] MEDS: ASPIRIN EC 81 MG TABLET.DR PO SCH (09:10)
[2017-03-22] MEDS: AMLODIPINE BESYLATE 10 MG TABLET PO SCH (09:11)
[2017-03-22] MEDS: METOPROLOL TARTRATE 25 MG TABLET PO SCH ×2 (09:11→16:51)
--- NOTE | 2017-03-22 12:02 | NUR ---
RN NOTES ENDORSE TO ZENIA NERI FOR SARI.
--- NOTE | 2017-03-22 12:30 | NUR ---
RN NOTES RECEIVED PATIENT AWAKE ALERT AND VERBALLY RESPONSIVE, ABLE TO MAKE NEEDS KNOWN. RESPIRATIONS EVEN AND UNLABORED, IN NO APPARENT PAIN OR DISCOMFORT AT THIS TIME. IV ACCESS PATENT AND INTACT, NO REDNESS OR INFILTRATION NOTED. KEPT CLEAN DRY AND COMFORTABLE, CALL LIGHT WITHIN EASY REACH WILL CONTINUE TO MONITOR
[2017-03-22 16:00] VITALS: BP 119/70
[2017-03-22] MEDS: RIVAROXABAN 10 MG TABLET PO SCH (16:52)
--- NOTE | 2017-03-22 18:26 | NUR ---
RN NOTES PATIENT AWAKE ALERT AND VERBALLY RESPONSIVE, ABLE TO MAKE NEEDS KNOWN. RESPIRATIONS EVEN AND UNLABORED, IN NO APPARENT PAIN OR DISCOMFORT AT THIS TIME. IV ACCESS PATENT AND INTACT, NO REDNESS OR INFILTRATION NOTED. KEPT CLEAN DRY AND COMFORTABLE, CALL LIGHT WITHIN EASY REACH WILL CONTINUE TO MONITOR AND ENDORSE TO NEXT SHIFT FOR CONTINUITY OF CARE
--- NOTE | 2017-03-22 19:24 | NUR ---
MS RN INITIAL NOTES PT IS SLEEPING, EASILY AROUSED. NO SIGNS OF SOB OR DISTRESS, BREATHING EVENLY AND UNLABORED ON NC 3L. DENIES PAIN AT THIS TIME. IV ACCESS IS INTACT AND PATENT WITH NS AT 75ML. BED IS IN LOW AND LOCKED POSITION, CALL LIGHT WITHIN REACH. WILL CONTINUE TO MONITOR PT
[2017-03-22 20:00] VITALS: BP 106/50
[2017-03-22] MEDS: IV NS 0.9% 1,000 ML IV PRN (21:17)
[2017-03-23] MEDS: CEFTRIAXONE 1 G in IV D5W 50 ML IV SCH (02:40)
[2017-03-23] MEDS: MAGNESIUM HYDROXIDE 30 ML UDC PO PRN ×2 (02:40→10:09)
--- NOTE | 2017-03-23 06:09 | NUR ---
MS RN CLOSING NOTES PT IS IN BED RESTING, EASILY AROUSED. NO SIGNS OF SOB OR DISTRESS. BREATHING EVENLY AND UNLABORED ON 3L NC. IV FLUIDS RUNNING AT 75 ML/HR. DENIES PAIN AT THIS TIME. NO ACUTE CHANGES THROUGHOUT THE SHIFT. ALL NEEDS WERE ANTICIPATED AND MET. BED IS IN LOW AND LOCKED POSITION, CALL LIGHT WITHIN REACH. WILL ENDORSE TO DAYSHIFT
--- NOTE | 2017-03-23 07:27 | NUR ---
MS RN OPENING NOTES PATIENT RECEIVED AWAKE AND LYING @ MODERATE HIGH BACKREST POSITION, NO ACUTE SIGNS OF DISTRESS NOTED. A/O X3, SAME VERBALLY RESPONSIVE, DENIES PAIN OR DISCOMFORTS AT THIS TIME. ON SUPPLEMENTAL 02 VIA N/C @3LPM, BREATHING UNLABORED WITH NO ACUTE RESPIRATORY DISTRESS NOTED. IV ACCESS ON RIGHT AC G#20 INTACT AND PATENT WITH IVF OF NS RUNNING @ 75ML/HR, NO SIGNS OF INFILTRATION OR PHLEBITIS NOTED. BED IS IN LOW AND LOCKED POSITION WITH SIDE-RAILS UP X2. CALL LIGHT WITHIN REACH. WILL CONTINUE TO MONITOR PT ACCORDINGLY
[2017-03-23 08:00] VITALS: BP 119/68
[2017-03-23] MEDS: ASPIRIN EC 81 MG TABLET.DR PO SCH (08:23)
[2017-03-23] MEDS: AMLODIPINE BESYLATE 10 MG TABLET PO SCH (08:23)
[2017-03-23 08:24] VITALS: BP 119/68
[2017-03-23] MEDS: METOPROLOL TARTRATE 25 MG TABLET PO SCH (08:24)
[2017-03-23 12:23] LABS: *SPE ALPHA-1-GLOBULIN 0.4 g/dL (0.0-0.4); *SPE ALPHA-2-GLOBULIN 0.9 g/dL (0.4-1.0); *SPE BETA GLOBULIN 1.2 g/dL (0.7-1.3); *SPE GLOBULIN, TOTAL 3.1 g/dL (2.2-3.9); *SPE M-SPIKE 0.4 g/dL (Not Observed); *SPEGAMMA GLOBULIN 0.7 g/dL (0.4-1.8)
--- NOTE | 2017-03-23 15:37 | NUR ---
RN DISCHARGED NOTES PATIENT DISCHARGED HOME IN STABLE CONDITION. A/O X 3. VERBALLY RESPONSIVE WITH NO C SIGNS OF DISTRESS NOTED. V/S TAKEN AND RECORDED. PHOTOS OF SKIN TAKEN AND FILED ON CHART. ALL BELONGINGS CHECKED, COUNTED AND SIGNED FORM. HEALT TEACHINGS GIVEN AND EXIT CARE REVIEWED WITH PT AND PT'S SON NATASHA, BOTH VERBALIZED UNDERSTANDING. PT LEFT UNIT AT 1530 VIA WHEELCHAIR ACCOMPANIED BY MONUMENT LETTERER AND PT'S SON. MD AND CHARGE NURSE AWARE OF DISCHARGE.
== END 2017-03-23 15:34 | disposition home or self-care (01) | DRG 194 ==
LOC: ER 00:58 → TELE 02:32 → MED 09:13 → TELE 03-22 01:15 → MED 03-22 10:55
PROVIDERS: ADMIT Internal Medicine; ATTEND Internal Medicine
DX: I11.0 Hypertensive heart disease with heart failure (principal); N17.0 Acute kidney failure with tubular necrosis; E86.1 Hypovolemia; N39.0 Urinary tract infection, site not specified; I48.91 Unspecified atrial fibrillation; E66.01 Morbid (severe) obesity due to excess calories; E03.9 Hypothyroidism, unspecified; D35.00 Benign neoplasm of unspecified adrenal gland; E78.5 Hyperlipidemia, unspecified; Z79.82 Long term (current) use of aspirin; Z79.899 Other long term (current) drug therapy; I13.0 Hypertensive heart and chronic kidney disease with heart failure and stage 1 through stage 4 chronic kidney disease, or unspecified chronic kidney disease; N18.9 Chronic kidney disease, unspecified; J45.909 Unspecified asthma, uncomplicated; Z79.01 Long term (current) use of anticoagulants; Z87.891 Personal history of nicotine dependence; D63.8 Anemia in other chronic diseases classified elsewhere; Z68.39 Body mass index [BMI] 39.0-39.9, adult; T50.1X5A Adverse effect of loop [high-ceiling] diuretics, initial encounter; T46.5X5A Adverse effect of other antihypertensive drugs, initial encounter; Y92.009 Unspecified place in unspecified non-institutional (private) residence as the place of occurrence of the external cause; I50.32 Chronic diastolic (congestive) heart failure
CPT/HCPCS: 36415; 71045-TC; 76770-TC; 80048-TC; 80053-TC; 80076-TC; 81000-TC; 82550-TC; 82570-TC; 82746; 83735-TC; 83880; 83970; 84100-TC; 84155; 84155-TC; 84165; 84300-TC; 84484-TC; 84550-TC; 85025-TC; 85730-TC; 87040-TC; 87081-TC; 87086-TC; A4606; J0696; J2405; J7030; J7040; J7060; Z7610